=== PATIENT | male | born 1955 | race Two or more races ===

== ENCOUNTER 2020-04-23 01:55 | Inpatient (IN) | payer MEDICAID ==
[~2020-04-23] VITALS: Ht 172.7 cm; Wt 62.7 kg
[2020-04-23] VITALS (8 sets, daily range): BP systolic 125–152; BP diastolic 54–80
--- NOTE | 2020-04-23 02:03 | Emergency Room Report ---
History of Present Illness General Chief Complaint: Fever Source: Medical Record, EMS Present Illness HPI This is a 65-year-old [facility] from [facility]. He is bedbound secondary to CVA. Also history of diabetes and high blood pressure. He presents with chief plaint of cough and fever. Onset for 1 day. He had negative cover testing about 10 days ago. Coughing is nonproductive nature. No nausea or vomiting. No diarrhea. Unable to get any history from this patient because of his condition. History is through EMS and [facility] note. 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 COVID-19 Screening: Negative COVID-19 COVID-19 Testing Source: on 04/13 Patient History Past Medical History: see triage record, old chart reviewed, HTN, CVA/TIA Past Surgical History: other Pertinent Family History: none Social History: Denies: smoking Immunizations: other Reviewed Nursing Documentation: PMH: Agreed; PSxH: Agreed Review of Systems Constitutional: Reports: fever Eye: Denies: eye pain, blurred vision ENT: Denies: ear pain, nose congestion, throat swelling Respiratory: Reports: cough; Denies: shortness of breath Cardiovascular: Denies: chest pain, palpitations Gastrointestinal: Denies: abdominal pain, diarrhea, nausea, vomiting Musculoskeletal: Denies: back pain, joint pain Skin: Denies: rash Neurological: Denies: headache, numbness Endocrine: Denies: increased thirst, increased urine Hematologic/Lymphatic: Denies: easy bruising All Other Systems: negative except mentioned in HPI Physical Exam Vital Signs Date Time Temp Pulse Resp B/P (MAP) Pulse Ox O2 Delivery O2 Flow Rate FiO2 04/23/20 01:57 98.4 90 19 99 Room Air Vitals unremarkable Sp02 EP Interpretation: reviewed, normal General Appearance: alert, Chronically Ill Head: normocephalic, atraumatic Eyes: bilateral eye PERRL, bilateral eye EOMI ENT: hearing grossly normal, normal pharynx Neck: full range of motion, supple, no meningismus Respiratory: chest non-tender, lungs clear, normal breath sounds Cardiovascular #1: regular rate, rhythm, no murmur Gastrointestinal: normal bowel sounds, non tender, no mass, no organomegaly, no bruit, non-distended Musculoskeletal: back normal Neurologic: other - Hemiplegia Psychiatric: mood/affect normal Medical Decision Making Diagnostic Impression: Primary Impression: Sepsis Qualified Codes: A41.9 - Sepsis, unspecified organism; R65.20 - Severe sepsis without septic shock; N17.9 - Acute kidney failure, unspecified Additional Impressions: UTI (urinary tract infection) Qualified Codes: N30.00 - Acute cystitis without hematuria ARF (acute renal failure) Qualified Codes: N17.9 - Acute kidney failure, unspecified Acute metabolic encephalopathy ER Course Patient presents with fever and cough. Oxygenation is normal here. Vitals are stable. He did have a fever which got better with Tylenol. Source appear to be urine. First call with test negative. Chest x-ray negative for infection. Patient be admitted to Dr. Ritchie for IVF and IV abx. EKG Diagnostic Results Rate: normal Rhythm: NSR ST Segments: no acute changes Rhythm Strip Diag. Results EP Interpretation: yes Rate: 95 Rhythm: NSR, no PVC's, no ectopy Chest X-Ray Diagnostic Results Chest X-Ray Diagnostic Results : Chest X-Ray Ordered: Yes # of Views/Limited/Complete: 1 View Indication: Shortness of Breath EP Interpretation: Yes Interpretation: no consolidation, no effusion, no pneumothorax, other - Elevated right hemidiaphragm. Atelectasis. Impression: Other - atelectasis Electronically Signed by: Abel Driscoll MD Last Vital Signs Date Time Temp Pulse Resp B/P (MAP) Pulse Ox O2 Delivery O2 Flow Rate FiO2 04/23/20 01:57 98.4 90 19 99 Room Air Status: improved Disposition: ADMITTED INPATIENT Condition: Serious Abel Driscoll MD Apr 23, 2020 02:03
[2020-04-23] MEDS ORDERED: DEPAKOTE ER500 MG ORAL (02:10)
[2020-04-23] MEDS ORDERED: ATORVASTATIN CA40 MG ORAL (02:10)
[2020-04-23] MEDS ORDERED: FAMOTIDINE20 MG ORAL (02:10)
[2020-04-23] MEDS ORDERED: NORVASC5 MG ORAL (02:10)
[2020-04-23] MEDS ORDERED: TYLENOL EXTRA500 MG ORAL (02:10)
[2020-04-23] MEDS ORDERED: SENNOSIDES-DOC1 EACH ORAL (02:10)
[2020-04-23] MEDS ORDERED: LEXAPRO10 MG ORAL (02:10)
[2020-04-23] MEDS ORDERED: LANTUS SOL100 UNIT/1 SUBQ (02:10)
[2020-04-23] MEDS ORDERED: IPRATROPIU0.2 MG/1 M HHN (02:10)
[2020-04-23] MEDS ORDERED: INSULIN LI100 UNIT/1 SQ (02:10)
[2020-04-23] MEDS ORDERED: LISINOPRIL20 MG ORAL (02:10)
[2020-04-23] MEDS ORDERED: PLAVIX75 MG ORAL (02:10)
[2020-04-23] MEDS ORDERED: LOPRESSOR HCT1 EAC3 ORAL (02:10)
[2020-04-23] MEDS ORDERED: QUETIAPINE FUM100 MG ORAL (02:10)
--- NOTE | 2020-04-23 02:20 | NUR ---
Nurse Note: Pt brought in by ambulance from [facility] c/o fever of >100F. Per EMS, pt was given PRN tylenol for fever but not effective. EMS report a negative covid test result on 04/13. N: Per EMS, pt has been showing more LOC; unk baseline. Pupils equal and reactive to light. 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 Pt mute; expresses thoughts with body language. IV established on LT AC, patent and infusing NS. On arrival, rectal temp 100.2F. C: HR 89 on arrival. EKG revealed SN. R: Pt RA, satting at 95% O2. GI: Normal GI : Pt incontent. 16Fr epperson cath inserted; urine output noted and collected. S: On inspection, skin intact. Covid swab sent; MRSA, CRE, VRE swab sent. All safety measures met; will continue to monitor. All safety measures met; will continue to monitor.
--- NOTE | 2020-04-23 02:35 | Diagnostic Imaging Report ---
EXAM: XR Chest, 1 View CLINICAL HISTORY: SOB TECHNIQUE: Frontal view of the chest. COMPARISON: No relevant prior studies available. FINDINGS/IMPRESSION: Elevation of the right hemidiaphragm. Right base subsegmental atelectasis. No pleural effusion or pneumothorax. The heart size is prominent. Degenerative change of the spine and right shoulder.
[2020-04-23 03:00] LABS: HEMATOCRIT 43.5 % (42.0-52.0); HEMOGLOBIN 13.7 G/DL (14.2-18.0); MEAN CORPUSCULAR VOLUME 93 FL (80-99); PLATELET COUNT 276 K/UL (150-450); RED CELL DISTRIBUTION WIDTH 13.5 % (11.6-14.8)
[2020-04-23 03:05] LABS: APPEARANCE,URINE CLOUDY; BILIRUBIN, URINE NEGATIVE (NEGATIVE); GLUCOSE, URINE (UA) 4+ (NEGATIVE); KETONES,URINE 1+ (NEGATIVE); LEUKOCYTE ESTERASE ,URINE 1+ (NEGATIVE); NITRITE,URINE NEGATIVE (NEGATIVE); PH,URINE 5 (4.5-8.0); PROTEIN,URINE 4+ (NEGATIVE); UROBILINOGEN,URINE NORMAL MG/DL (0.0-1.0)
[2020-04-23 03:15] LABS: COLOR,URINE YELLOW
[2020-04-23 03:32] LABS: WHITE BLOOD COUNT 25.8 K/UL (4.8-10.8)
[2020-04-23] MEDS ORDERED: Acetaminophen 650 MG SUPP RECTAL ONE (03:45)
[2020-04-23 03:57] LABS: ALANINE AMINOTRANSFERASE 22 U/L (12-78); ALBUMIN 2.9 G/DL (3.4-5.0); ALBUMIN/GLOBULIN RATIO 0.5 (1.0-2.7); ALKALINE PHOSPHATASE 103 U/L (46-116); ANION GAP 10 mmol/L (5-15); ASPARTATE AMINO TRANSFERASE 25 U/L (15-37); BILIRUBIN,TOTAL 0.7 MG/DL (0.2-1.0); BLOOD UREA NITROGEN 30 mg/dL (7-18); CALCIUM 8.6 MG/DL (8.5-10.1); CARBON DIOXIDE 29 MMOL/L (21-32); CHLORIDE 98 MMOL/L (98-107); CKMB 1.2 NG/ML (0.0-3.6); CREATINE KINASE 125 U/L (26-308); CREATININE 2.3 MG/DL (0.55-1.30); POTASSIUM 3.7 MMOL/L (3.5-5.1); SODIUM 136 MMOL/L (136-145)
[2020-04-23] MEDS ORDERED: Acetaminophen 500mg (ES) tab ORAL ONE (04:00)
[2020-04-23] MEDS ORDERED: cefTRIAXone 1 GM in NS 55 ML IVPB ONE (04:00)
--- NOTE | 2020-04-23 04:15 | NUR ---
Nurse Note: All orders completed per ERMD orders. aware of 100.5 F rectal temp; tylenol ordered and administered. VSS. LT AC IV patent; infusing fluids and antibiotics. Newell cath patent and draining. No belongings noted. All safety measures met; will continue to monitor.
--- NOTE | 2020-04-23 05:25 | NUR ---
Nurse Note: One episode of yellow emesis; aware and kat ordered. Pt remains at baseline. All safety measures metl; will continue to monitor.
--- NOTE | 2020-04-23 05:42 | NUR ---
Nurse Note: Report given to NEERAJ Triana for continutiy of care. All remains at baseline condition.
[2020-04-23] MEDS ORDERED: Morphine Sulfate 2mg/ml Inj(IV/IM USE ONLY) IVP PRN (06:00)
--- NOTE | 2020-04-23 06:05 | NUR ---
NURSE NOTES: Report received from Mervat PICKARD. Patient arrived on unit via stretcher. Patient safely transferred to bed 401-2. Patient is noted to be on room air. Does not appear to be in respiratory distress. Patient is awake and alert x 2. Patient has a history of a stroke, but patient is able to respond to name, answer simple yes or no questions, patient is able to follow simple commands, and make basic needs known with pointing and gestures. Patient is noted to have 16 andorran epperson inserted in emergency department. currently patent and draining clear yellow urine. Patient noted to have 18 jayla IV in left ac, patent and flushes. Patient is noted not to have any skin issues. skin is clean, dry, and in tact. Do note that patient has old scar on sacrum. Patient's vital signs were as followed upon arrival: BP: 143/66 Heart Rate: 115 BPM Respirations: 18 respirations a minute Oxygen saturation: 96 % room air Temperature: 102.5 Kong PICKARD paged Doctor Russ regarding fever of 102.5. Orders for PRN Tylenol given. Patient recognized as a high fall risk. Placed in yellow gown, yellow socks, room near nurses station. Bed alarm on. Bed locked and in lowest position. Will endorse rest of admission to day shift. Patient is currently in stable condition.
--- NOTE | 2020-04-23 07:09 | NUR ---
NURSE NOTES: Received report from NEERAJ Triana. Pt received lying in hospital bed, AAO x 2, Korean and Telugu speaking, on RA, with no s/s of respiratory distress nor pain at this time. Pt's swallowing is in question d/t coughing when given water for swallowing medications. Incontinent x 2, has epperson [address], LBM unknown. Pt's skin intact, pIV on L AC at 18 g running NS at 100 ml/hr. Negative COVID-19 test from admission this AM. Will verify with diet at SNF. Will continue POC.
--- NOTE | 2020-04-23 07:33 | NUR ---
HAND-OFF: Report given to Sunny PICKARD. Endorsed admission. Endorsed that patient began coughing after given water to take two whole pills this morning. Endorsed that patient is a high fall risk. Patient is currently in stable condition.
--- NOTE | 2020-04-23 07:50 | NUR ---
NURSE NOTES: Called [facility] and confirmed that patient's diet order there is pureed with thickened liquids. Relayed information to Dr. Ritchie and received order to modify dietary texture as such. Notified Dietary department regarding updated orders.
[2020-04-23] MEDS: NovoLOG Insulin Flexpen SUBQ SCH ×4 (08:00→20:19)
[2020-04-23] MEDS ORDERED: Docusate 100mg cap ORAL SCH (09:00)
[2020-04-23] MEDS: Heparin 5000 units/ml inj SUBQ SCH ×2 (09:51→20:19)
--- NOTE | 2020-04-23 12:26 | Infectious Diseases Prog Note ---
Assessment/Plan Assessment/Plan Full consult to follow: A) 1) sepsis, fevers, leukocytosis, ? source 2) pmh noted 3) allergies - nkda P) 1) zosyn and zyvox, po vancomycin 2) check cultures, labs and chest x-ray, c.diff. 3) thank you Subjective Allergies: Coded Allergies: No Known Allergies (Unverified , 04/23/20) Objective Last 24 Hour Vital Signs Date Time Temp Pulse Resp B/P (MAP) Pulse Ox O2 Delivery O2 Flow Rate FiO2 04/23/20 09:00 Room Air 04/23/20 08:00 98.2 103 19 136/62 (86) 95 04/23/20 07:30 98.2 04/23/20 06:57 Room Air 04/23/20 06:05 102.5 115 18 143/66 (91) 96 04/23/20 05:50 100.5 110 19 147/80 100 Room Air 04/23/20 05:42 110 19 147/80 100 Room Air 04/23/20 05:26 100.5 04/23/20 04:14 100.5 100 19 130/80 100 Room Air 04/23/20 02:23 90 19 Room Air 04/23/20 02:23 100.2 89 19 135/56 99 Room Air 04/23/20 01:57 98.4 90 19 99 Room Air Height (Feet): 5 Height (Inches): 8.00 Weight (Pounds): 140 Microbiology Date/Time Source Procedure Growth Status 04/23/20 02:15 Nasopharynx SARS-CoV-2 RdRp Gene Assay - Final Complete Laboratory Tests Test 04/23/20 02:00 White Blood Count 25.8 K/UL (4.8-10.8) *H Red Blood Count 4.70 M/UL (4.70-6.10) Hemoglobin 13.7 G/DL (14.2-18.0) L Hematocrit 43.5 % (42.0-52.0) Mean Corpuscular Volume 93 FL (80-99) Mean Corpuscular Hemoglobin 29.1 PG (27.0-31.0) Mean Corpuscular Hemoglobin Concent 31.4 G/DL (32.0-36.0) L Red Cell Distribution Width 13.5 % (11.6-14.8) Platelet Count 276 K/UL (150-450) Mean Platelet Volume 7.0 FL (6.5-10.1) Neutrophils (%) (Auto) % (45.0-75.0) Lymphocytes (%) (Auto) % (20.0-45.0) Monocytes (%) (Auto) % (1.0-10.0) Eosinophils (%) (Auto) % (0.0-3.0) Basophils (%) (Auto) % (0.0-2.0) Differential Total Cells Counted 100 Neutrophils % (Manual) 87 % (45-75) H Lymphocytes % (Manual) 4 % (20-45) L Monocytes % (Manual) 7 % (1-10) Eosinophils % (Manual) 0 % (0-3) Basophils % (Manual) 0 % (0-2) Band Neutrophils 2 % (0-8) Platelet Estimate Adequate Platelet Morphology Normal Red Blood Cell Morphology Normal Urine Color Yellow Urine Appearance Cloudy Urine pH 5 (4.5-8.0) Urine Specific [place] 1.015 (1.005-1.035) Urine Protein 4+ (NEGATIVE) H Urine Glucose (UA) 4+ (NEGATIVE) H Urine Ketones 1+ (NEGATIVE) H Urine Blood 3+ (NEGATIVE) H Urine Nitrite Negative (NEGATIVE) Urine Bilirubin Negative (NEGATIVE) Urine Urobilinogen Normal MG/DL (0.0-1.0) Urine Leukocyte Esterase 1+ (NEGATIVE) H Urine RBC 5-10 /HPF (0 - 0) H Urine WBC 2-4 /HPF (0 - 0) Urine Squamous Epithelial Cells Few /LPF (NONE/OCC) Urine Amorphous Sediment Moderate /LPF (NONE) H Urine Bacteria Few /HPF (NONE) Urine Hyaline Casts 0-2 /LPF (NONE) H Urine Coarse Granular Casts 5-10 /LPF (NONE) H Sodium Level 136 MMOL/L (136-145) Potassium Level 3.7 MMOL/L (3.5-5.1) Chloride Level 98 MMOL/L (98-107) Carbon Dioxide Level 29 MMOL/L (21-32) Anion Gap 10 mmol/L (5-15) Blood Urea Nitrogen 30 mg/dL (7-18) H Creatinine 2.3 MG/DL (0.55-1.30) H Estimat Glomerular Filtration Rate 28.7 mL/min (>60) Glucose Level 259 MG/DL (74-106) H Hemoglobin A1c 8.5 % (4.3-6.0) H Lactic Acid Level 1.30 mmol/L (0.4-2.0) Calcium Level 8.6 MG/DL (8.5-10.1) Total Bilirubin 0.7 MG/DL (0.2-1.0) Aspartate Amino Transf (AST/SGOT) 25 U/L (15-37) Alanine Aminotransferase (ALT/SGPT) 22 U/L (12-78) Alkaline Phosphatase 103 U/L (46-116) Total Creatine Kinase 125 U/L (26-308) Creatine Kinase MB 1.2 NG/ML (0.0-3.6) Creatine Kinase MB Relative Index 0.9 Troponin I 0.000 ng/mL (0.000-0.056) Total Protein 8.3 G/DL (6.4-8.2) H Albumin 2.9 G/DL (3.4-5.0) L Globulin 5.4 g/dL Albumin/Globulin Ratio 0.5 (1.0-2.7) L Current Medications Medications (Trade) Dose Ordered Sig/Raghu Route PRN Reason Start Time Stop Time Status Last Admin Dose Admin Acetaminophen (Tylenol) 650 mg Q4H PRN ORAL Temp >100.5 04/23/20 06:50 05/23/20 06:49 04/23/20 07:00 Dextrose (Dextrose 50%) 25 ml Q30M PRN IV Hypoglycemia 04/23/20 06:00 07/22/20 05:59 Dextrose (Dextrose 50%) 50 ml Q30M PRN IV Hypoglycemia 04/23/20 06:00 07/22/20 05:59 Diphenhydramine HCl (Benadryl) 25 mg Q6H PRN ORAL Itching/Pruritis 04/23/20 06:00 05/23/20 05:59 Docusate Sodium (Colace) 100 mg EVERY 12 HOURS ORAL 04/23/20 09:00 05/23/20 08:59 Famotidine (Pepcid) 20 mg BID ORAL 04/23/20 09:00 07/22/20 08:59 04/23/20 09:50 Heparin Sodium (Porcine) (Heparin 5000 units/ml) 5,000 units EVERY 12 HOURS SUBQ 04/23/20 09:00 06/07/20 08:59 04/23/20 09:51 Insulin Aspart (NovoLOG) BEFORE MEALS AND HS SUBQ 04/23/20 08:00 07/22/20 07:59 Insulin Detemir (Levemir) 10 units BEDTIME SUBQ 04/23/20 21:00 07/22/20 20:59 Morphine Sulfate (Morphine Sulfate) 1 mg Q3H PRN IVP For Pain 04/23/20 06:00 04/30/20 05:59 Ondansetron HCl (Zofran) 4 mg Q6H PRN IVP Nausea & Vomiting 04/23/20 06:00 05/23/20 05:59 Piperacillin Sod/ Tazobactam Sod 3.375 gm/Sodium Chloride 110 ml @ 27.5 mls/hr EVERY 8 HOURS IVPB 04/23/20 14:00 04/28/20 13:59 Sodium Chloride 1,000 ml @ 100 mls/hr Q10H IV 04/23/20 06:15 05/23/20 06:14 04/23/20 06:54 Temazepam (Restoril) 15 mg HSPRN PRN ORAL Insomnia 04/23/20 06:00 04/30/20 05:59 Malina Thompson MD Apr 23, 2020 12:26
--- NOTE | 2020-04-23 12:59 | Consultation ---
History of Present Illness General Chief Complaint: Fever Present Illness HPI [facility] a 65[facility] He is bedbound secondary to CVA. Also history of diabetes and high blood pressure. He presents with chief plaint of cough and fever. Onset for 1 day. He had negative covid testing about 10 days ago. Coughing is nonproductive nature. No nausea or vomiting. No diarrhea. Unable to get any history from this patient because of his condition. History is through EMS and shelter note. Allergies: Coded Allergies: No Known Allergies (Unverified , 04/23/20) Medication History Scheduled Amlodipine Besylate (Norvasc), 5 MG ORAL DAILY, (Reported) Atorvastatin Calcium* (Atorvastatin Calcium*), 40 MG ORAL BEDTIME, (Reported) Clopidogrel Bisulfate* (Plavix*), 75 MG ORAL DAILY, (Reported) Divalproex Sodium* (Depakote Er*), 750 MG ORAL EVERY 12 HOURS, (Reported) Escitalopram Oxalate* (Lexapro*), 15 MG ORAL DAILY, (Reported) Famotidine* (Pepcid 20mg tablet*), 20 MG ORAL DAILY, (Reported) Insulin Glargine (Lantus), 0 SUBQ BEDTIME, (Reported) Lisinopril (Lisinopril*), 20 MG ORAL DAILY, (Reported) Metoprolol/Hydrochlorothiazide (Lopressor Hct 50-25 Tablet), 1 TAB ORAL DAILY, ( Reported) Quetiapine Fumarate* (Seroquel*), 75 MG ORAL DAILY, (Reported) Sennosides-Docusate Sodium* (Sennosides-Docusate Sodium*), 1 TAB ORAL DAILY, ( Reported) Scheduled PRN Acetaminophen* (Tylenol Extra Strength*), 325 MG ORAL Q6H PRN for Mild Pain/ Temp > 100.5, (Reported) Ipratropium [place] 0.5MG/2.5ML (Ipratropium [place] 0.5MG/2.5ML), 0.5 MG HHN Q6H PRN for Shortness of Breath, (Reported) Miscellaneous Medications Insulin Lispro (Insulin Lispro), 100 UNIT SQ, (Reported) Patient History Healthcare decision maker Resuscitation status Advanced Directive on File Review of Systems All Other Systems: negative except mentioned in HPI Physical Exam Last 24 Hour Vital Signs Date Time Temp Pulse Resp B/P (MAP) Pulse Ox O2 Delivery O2 Flow Rate FiO2 04/23/20 12:00 98.4 71 18 132/54 (80) 100 04/23/20 09:00 Room Air 04/23/20 08:00 98.2 103 19 136/62 (86) 95 04/23/20 07:30 98.2 04/23/20 06:57 Room Air 04/23/20 06:05 102.5 115 18 143/66 (91) 96 04/23/20 05:50 100.5 110 19 147/80 100 Room Air 04/23/20 05:42 110 19 147/80 100 Room Air 04/23/20 05:26 100.5 04/23/20 04:14 100.5 100 19 130/80 100 Room Air 04/23/20 02:23 90 19 Room Air 04/23/20 02:23 100.2 89 19 135/56 99 Room Air 04/23/20 01:57 98.4 90 19 99 Room Air Intake and Output 04/22/20 04/23/20 19:00 07:00 Intake Total 4255 ml Output Total 500 ml Balance 3755 ml Intake IV Total 4255 ml Output Urine Total 500 ml # Bowel Movements 1 Laboratory Tests Test 04/23/20 02:00 White Blood Count 25.8 K/UL (4.8-10.8) *H Red Blood Count 4.70 M/UL (4.70-6.10) Hemoglobin 13.7 G/DL (14.2-18.0) L Hematocrit 43.5 % (42.0-52.0) Mean Corpuscular Volume 93 FL (80-99) Mean Corpuscular Hemoglobin 29.1 PG (27.0-31.0) Mean Corpuscular Hemoglobin Concent 31.4 G/DL (32.0-36.0) L Red Cell Distribution Width 13.5 % (11.6-14.8) Platelet Count 276 K/UL (150-450) Mean Platelet Volume 7.0 FL (6.5-10.1) Neutrophils (%) (Auto) % (45.0-75.0) Lymphocytes (%) (Auto) % (20.0-45.0) Monocytes (%) (Auto) % (1.0-10.0) Eosinophils (%) (Auto) % (0.0-3.0) Basophils (%) (Auto) % (0.0-2.0) Differential Total Cells Counted 100 Neutrophils % (Manual) 87 % (45-75) H Lymphocytes % (Manual) 4 % (20-45) L Monocytes % (Manual) 7 % (1-10) Eosinophils % (Manual) 0 % (0-3) Basophils % (Manual) 0 % (0-2) Band Neutrophils 2 % (0-8) Platelet Estimate Adequate Platelet Morphology Normal Red Blood Cell Morphology Normal Urine Color Yellow Urine Appearance Cloudy Urine pH 5 (4.5-8.0) Urine Specific [place] 1.015 (1.005-1.035) Urine Protein 4+ (NEGATIVE) H Urine Glucose (UA) 4+ (NEGATIVE) H Urine Ketones 1+ (NEGATIVE) H Urine Blood 3+ (NEGATIVE) H Urine Nitrite Negative (NEGATIVE) Urine Bilirubin Negative (NEGATIVE) Urine Urobilinogen Normal MG/DL (0.0-1.0) Urine Leukocyte Esterase 1+ (NEGATIVE) H Urine RBC 5-10 /HPF (0 - 0) H Urine WBC 2-4 /HPF (0 - 0) Urine Squamous Epithelial Cells Few /LPF (NONE/OCC) Urine Amorphous Sediment Moderate /LPF (NONE) H Urine Bacteria Few /HPF (NONE) Urine Hyaline Casts 0-2 /LPF (NONE) H Urine Coarse Granular Casts 5-10 /LPF (NONE) H Sodium Level 136 MMOL/L (136-145) Potassium Level 3.7 MMOL/L (3.5-5.1) Chloride Level 98 MMOL/L (98-107) Carbon Dioxide Level 29 MMOL/L (21-32) Anion Gap 10 mmol/L (5-15) Blood Urea Nitrogen 30 mg/dL (7-18) H Creatinine 2.3 MG/DL (0.55-1.30) H Estimat Glomerular Filtration Rate 28.7 mL/min (>60) Glucose Level 259 MG/DL (74-106) H Hemoglobin A1c 8.5 % (4.3-6.0) H Lactic Acid Level 1.30 mmol/L (0.4-2.0) Calcium Level 8.6 MG/DL (8.5-10.1) Total Bilirubin 0.7 MG/DL (0.2-1.0) Aspartate Amino Transf (AST/SGOT) 25 U/L (15-37) Alanine Aminotransferase (ALT/SGPT) 22 U/L (12-78) Alkaline Phosphatase 103 U/L (46-116) Total Creatine Kinase 125 U/L (26-308) Creatine Kinase MB 1.2 NG/ML (0.0-3.6) Creatine Kinase MB Relative Index 0.9 Troponin I 0.000 ng/mL (0.000-0.056) Total Protein 8.3 G/DL (6.4-8.2) H Albumin 2.9 G/DL (3.4-5.0) L Globulin 5.4 g/dL Albumin/Globulin Ratio 0.5 (1.0-2.7) L Microbiology Date/Time Source Procedure Growth Status 04/23/20 02:15 Nasopharynx SARS-CoV-2 RdRp Gene Assay - Final Complete Height (Feet): 5 Height (Inches): 8.00 Weight (Pounds): 140 Medications Current Medications Medications (Trade) Dose Ordered Sig/Raghu Route PRN Reason Start Time Stop Time Status Last Admin Dose Admin Acetaminophen (Tylenol) 650 mg Q4H PRN ORAL Temp >100.5 04/23/20 06:50 05/23/20 06:49 04/23/20 07:00 Dextrose (Dextrose 50%) 25 ml Q30M PRN IV Hypoglycemia 04/23/20 06:00 07/22/20 05:59 Dextrose (Dextrose 50%) 50 ml Q30M PRN IV Hypoglycemia 04/23/20 06:00 07/22/20 05:59 Diphenhydramine HCl (Benadryl) 25 mg Q6H PRN ORAL Itching/Pruritis 04/23/20 06:00 05/23/20 05:59 Docusate Sodium (Colace) 100 mg EVERY 12 HOURS ORAL 04/23/20 09:00 05/23/20 08:59 Famotidine (Pepcid) 20 mg BID ORAL 04/23/20 09:00 07/22/20 08:59 04/23/20 09:50 Heparin Sodium (Porcine) (Heparin 5000 units/ml) 5,000 units EVERY 12 HOURS SUBQ 04/23/20 09:00 06/07/20 08:59 04/23/20 09:51 Insulin Aspart (NovoLOG) BEFORE MEALS AND HS SUBQ 04/23/20 08:00 07/22/20 07:59 04/23/20 12:28 Insulin Detemir (Levemir) 10 units BEDTIME SUBQ 04/23/20 21:00 07/22/20 20:59 Linezolid 300 ml @ 300 mls/hr EVERY 12 HOURS IVPB 04/23/20 21:00 04/30/20 20:59 Morphine Sulfate (Morphine Sulfate) 1 mg Q3H PRN IVP For Pain 04/23/20 06:00 04/30/20 05:59 Ondansetron HCl (Zofran) 4 mg Q6H PRN IVP Nausea & Vomiting 04/23/20 06:00 05/23/20 05:59 Piperacillin Sod/ Tazobactam Sod 3.375 gm/Sodium Chloride 110 ml @ 27.5 mls/hr EVERY 8 HOURS IVPB 04/23/20 14:00 04/28/20 13:59 Sodium Chloride 1,000 ml @ 100 mls/hr Q10H IV 04/23/20 06:15 05/23/20 06:14 04/23/20 06:54 Temazepam (Restoril) 15 mg HSPRN PRN ORAL Insomnia 04/23/20 06:00 04/30/20 05:59 Vancomycin HCl (Firvanq) 125 mg FOUR TIMES A DAY ORAL 04/23/20 13:30 04/30/20 13:29 Objective Narrative GENERAL: No acute distress, appears comfortable, alert HEENT: NCAT, non-icteric eyes, pupils PERRLA Neck: No cervical lymphadenopathy, trachea midline CV: Regular rate and rhythm, no murmurs rubs or gallops RESP: Clear to auscultation bilaterally, no wheezes/rhonchi/crackles : Erythema surrounding penis at the meatus, with very small blister ABD: soft, non-distended, no TTP EXT: Normal muscle tone, +5/5 muscle strength NEURO: Is aphasic and bedbound from prior stroke, normal muscle tone Assessment/Plan Diagnosis [place] I: #CONRAD on CKD #Sepsis due to UTI vs c diff #leukocytosis #HTN #DM #HLD #h/o CVA #bedbound - admit inpatient - IVF - renal US - defer further work up pending evolution of renal function - antibiotics per ID - amlodpine 5mg daily - metop 50mg BID - avoid nephrotoxins - strict I&Os - stools studies - daily weights A total of 70 minutes was spent on this case with more than 50% including care coordination and counseling. Rosalba Ritchie M.D. Apr 23, 2020 12:59
[2020-04-23] MEDS: Piperacillin/Tazobactam 3.375 GM in NS 110 ML IVPB SCH ×2 (14:21→21:12)
[2020-04-23] MEDS: Vancomycin oral 125mg/2.5ml ORAL SCH ×3 (14:21→20:18)
[2020-04-23 14:38] LABS: ANION GAP 10 mmol/L (5-15); BLOOD UREA NITROGEN 31 mg/dL (7-18); CALCIUM 7.8 MG/DL (8.5-10.1); CARBON DIOXIDE 24 MMOL/L (21-32); CHLORIDE 103 MMOL/L (98-107); CREATININE 1.8 MG/DL (0.55-1.30); POTASSIUM 3.8 MMOL/L (3.5-5.1); SODIUM 137 MMOL/L (136-145)
--- NOTE | 2020-04-23 15:20 | NUR ---
CASE MANAGEMENT:REVIEW 65 YR OLD MALE BIBA FROM [facility] CC: FEVER SI: SEPSIS. UTI. 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
[2020-04-23] MEDS ORDERED: Milk of Magnesia 30ml Ud ORAL PRN (15:45)
[2020-04-23] MEDS ORDERED: Ipratropium 0.02% Inh Soln 2.5ml UD HHN PRN (15:45)
[2020-04-23] MEDS ORDERED: LORazepam 1mg tab ORAL PRN (15:45)
--- NOTE | 2020-04-23 18:18 | History and Physical ---
History of Present Illness General Date patient seen: Apr 23, 2020 Time patient seen: 13:00 Reason for Hospitalization: Fever Present Illness HPI Difficult to obtain history from patient as he is a phasic from prior stroke. Most history obtained from chart review. This is a 65-year-old male from care home. He is bedbound secondary to CVA. Also history of diabetes and high blood pressure. He presents with chief plaint of cough and fever. Onset for 1 day. He had negative covid testing about 10 days ago. Coughing is nonproductive nature. No nausea or vomiting. No diarrhea. Unable to get any history from this patient because of his condition. History is through EMS and care home note. Patient was admitted for sepsis secondary to UTI and given Rocephin in the ED. Patient was also given IV fluids and has CONRAD. When I asked patient if he has had kidney problems in the past he said yes, however I suspect patient is a poor historian. Patient continued to be febrile with fever of 102.5 that came down with Tylenol. Patient is coming from convalescent home Unable to obtain family history, social history Allergies: Coded Allergies: No Known Allergies (Unverified , 04/23/20) COVID-19 Screening Contact w/high risk pt: Yes Recent Travel to affected area: No Experienced COVID-19 symptoms?: No COVID-19 symptoms experienced: Fever (T>100.4F or >38C) Medication History Scheduled Amlodipine Besylate (Norvasc), 5 MG ORAL DAILY, (Reported) Atorvastatin Calcium* (Atorvastatin Calcium*), 40 MG ORAL BEDTIME, (Reported) Clopidogrel Bisulfate* (Plavix*), 75 MG ORAL DAILY, (Reported) Divalproex Sodium* (Depakote Er*), 750 MG ORAL EVERY 12 HOURS, (Reported) Escitalopram Oxalate* (Lexapro*), 15 MG ORAL DAILY, (Reported) Famotidine* (Pepcid 20mg tablet*), 20 MG ORAL DAILY, (Reported) Insulin Glargine (Lantus), 0 SUBQ BEDTIME, (Reported) Lisinopril (Lisinopril*), 20 MG ORAL DAILY, (Reported) Metoprolol/Hydrochlorothiazide (Lopressor Hct 50-25 Tablet), 1 TAB ORAL DAILY, ( Reported) Quetiapine Fumarate* (Seroquel*), 75 MG ORAL DAILY, (Reported) Sennosides-Docusate Sodium* (Sennosides-Docusate Sodium*), 1 TAB ORAL DAILY, ( Reported) Scheduled PRN Acetaminophen* (Tylenol Extra Strength*), 325 MG ORAL Q6H PRN for Mild Pain/ Temp > 100.5, (Reported) Ipratropium [place] 0.5MG/2.5ML (Ipratropium [place] 0.5MG/2.5ML), 0.5 MG HHN Q6H PRN for Shortness of Breath, (Reported) Miscellaneous Medications Insulin Lispro (Insulin Lispro), 100 UNIT SQ, (Reported) Medications Narrative Noted above Patient History Limited by: other - A aphasia from stroke History Provided By: Medical Record Healthcare decision maker Resuscitation status Full code, by POLST, reviewed Advanced Directive on File Review of Systems ROS Narrative Unable to obtain clearly Physical Exam Last 24 Hour Vital Signs Date Time Temp Pulse Resp B/P (MAP) Pulse Ox O2 Delivery O2 Flow Rate FiO2 04/23/20 16:00 98.0 93 21 125/63 (83) 97 04/23/20 12:00 98.4 71 18 132/54 (80) 100 04/23/20 09:00 Room Air 04/23/20 08:00 98.2 103 19 136/62 (86) 95 04/23/20 07:30 98.2 04/23/20 06:57 Room Air 04/23/20 06:05 102.5 115 18 143/66 (91) 96 04/23/20 05:50 100.5 110 19 147/80 100 Room Air 04/23/20 05:42 110 19 147/80 100 Room Air 04/23/20 05:26 100.5 04/23/20 04:14 100.5 100 19 130/80 100 Room Air 04/23/20 02:23 90 19 Room Air 04/23/20 02:23 100.2 89 19 135/56 99 Room Air 04/23/20 01:57 98.4 90 19 99 Room Air Intake and Output 04/22/20 04/23/20 19:00 07:00 Intake Total 4255 ml Output Total 500 ml Balance 3755 ml Intake IV Total 4255 ml Output Urine Total 500 ml # Bowel Movements 1 Laboratory Tests Test 04/23/20 02:00 04/23/20 14:05 White Blood Count 25.8 K/UL (4.8-10.8) *H Red Blood Count 4.70 M/UL (4.70-6.10) Hemoglobin 13.7 G/DL (14.2-18.0) L Hematocrit 43.5 % (42.0-52.0) Mean Corpuscular Volume 93 FL (80-99) Mean Corpuscular Hemoglobin 29.1 PG (27.0-31.0) Mean Corpuscular Hemoglobin Concent 31.4 G/DL (32.0-36.0) L Red Cell Distribution Width 13.5 % (11.6-14.8) Platelet Count 276 K/UL (150-450) Mean Platelet Volume 7.0 FL (6.5-10.1) Neutrophils (%) (Auto) % (45.0-75.0) Lymphocytes (%) (Auto) % (20.0-45.0) Monocytes (%) (Auto) % (1.0-10.0) Eosinophils (%) (Auto) % (0.0-3.0) Basophils (%) (Auto) % (0.0-2.0) Differential Total Cells Counted 100 Neutrophils % (Manual) 87 % (45-75) H Lymphocytes % (Manual) 4 % (20-45) L Monocytes % (Manual) 7 % (1-10) Eosinophils % (Manual) 0 % (0-3) Basophils % (Manual) 0 % (0-2) Band Neutrophils 2 % (0-8) Platelet Estimate Adequate Platelet Morphology Normal Red Blood Cell Morphology Normal Urine Color Yellow Urine Appearance Cloudy Urine pH 5 (4.5-8.0) Urine Specific [place] 1.015 (1.005-1.035) Urine Protein 4+ (NEGATIVE) H Urine Glucose (UA) 4+ (NEGATIVE) H Urine Ketones 1+ (NEGATIVE) H Urine Blood 3+ (NEGATIVE) H Urine Nitrite Negative (NEGATIVE) Urine Bilirubin Negative (NEGATIVE) Urine Urobilinogen Normal MG/DL (0.0-1.0) Urine Leukocyte Esterase 1+ (NEGATIVE) H Urine RBC 5-10 /HPF (0 - 0) H Urine WBC 2-4 /HPF (0 - 0) Urine Squamous Epithelial Cells Few /LPF (NONE/OCC) Urine Amorphous Sediment Moderate /LPF (NONE) H Urine Bacteria Few /HPF (NONE) Urine Hyaline Casts 0-2 /LPF (NONE) H Urine Coarse Granular Casts 5-10 /LPF (NONE) H Sodium Level 136 MMOL/L (136-145) 137 MMOL/L (136-145) Potassium Level 3.7 MMOL/L (3.5-5.1) 3.8 MMOL/L (3.5-5.1) Chloride Level 98 MMOL/L (98-107) 103 MMOL/L (98-107) Carbon Dioxide Level 29 MMOL/L (21-32) 24 MMOL/L (21-32) Anion Gap 10 mmol/L (5-15) 10 mmol/L (5-15) Blood Urea Nitrogen 30 mg/dL (7-18) H 31 mg/dL (7-18) H Creatinine 2.3 MG/DL (0.55-1.30) H 1.8 MG/DL (0.55-1.30) H Estimat Glomerular Filtration Rate 28.7 mL/min (>60) 38.1 mL/min (>60) Glucose Level 259 MG/DL (74-106) H 235 MG/DL (74-106) H Hemoglobin A1c 8.5 % (4.3-6.0) H Lactic Acid Level 1.30 mmol/L (0.4-2.0) Calcium Level 8.6 MG/DL (8.5-10.1) 7.8 MG/DL (8.5-10.1) L Total Bilirubin 0.7 MG/DL (0.2-1.0) Aspartate Amino Transf (AST/SGOT) 25 U/L (15-37) Alanine Aminotransferase (ALT/SGPT) 22 U/L (12-78) Alkaline Phosphatase 103 U/L (46-116) Total Creatine Kinase 125 U/L (26-308) Creatine Kinase MB 1.2 NG/ML (0.0-3.6) Creatine Kinase MB Relative Index 0.9 Troponin I 0.000 ng/mL (0.000-0.056) Total Protein 8.3 G/DL (6.4-8.2) H Albumin 2.9 G/DL (3.4-5.0) L Globulin 5.4 g/dL Albumin/Globulin Ratio 0.5 (1.0-2.7) L Microbiology Date/Time Source Procedure Growth Status 04/23/20 02:15 Nasopharynx SARS-CoV-2 RdRp Gene Assay - Final Complete Height (Feet): 5 Height (Inches): 8.00 Weight (Pounds): 140 Medications Current Medications Medications (Trade) Dose Ordered Sig/Raghu Route PRN Reason Start Time Stop Time Status Last Admin Dose Admin Acetaminophen (Tylenol) 650 mg Q4H PRN ORAL Temp >100.5 04/23/20 06:50 05/23/20 06:49 04/23/20 07:00 Amlodipine Besylate (Norvasc) 5 mg DAILY ORAL 04/24/20 09:00 05/24/20 08:59 Atorvastatin Calcium (Lipitor) 40 mg BEDTIME ORAL 04/23/20 21:00 07/22/20 20:59 Dextrose (Dextrose 50%) 25 ml Q30M PRN IV Hypoglycemia 04/23/20 06:00 07/22/20 05:59 Dextrose (Dextrose 50%) 50 ml Q30M PRN IV Hypoglycemia 04/23/20 06:00 07/22/20 05:59 Diphenhydramine HCl (Benadryl) 25 mg Q6H PRN ORAL Itching/Pruritis 04/23/20 06:00 05/23/20 05:59 Divalproex Sodium (Depakote) 500 mg DAILY ORAL 04/24/20 09:00 05/24/20 08:59 Divalproex Sodium (Depakote) 750 mg BEDTIME ORAL 04/23/20 21:00 05/23/20 20:59 Escitalopram Oxalate (Lexapro) 15 mg DAILY ORAL 04/24/20 09:00 05/24/20 08:59 Famotidine (Pepcid) 20 mg BID ORAL 04/23/20 09:00 07/22/20 08:59 04/23/20 17:39 Folic Acid (Folate) 1 mg DAILY ORAL 04/24/20 09:00 05/24/20 08:59 Heparin Sodium (Porcine) (Heparin 5000 units/ml) 5,000 units EVERY 12 HOURS SUBQ 04/23/20 09:00 06/07/20 08:59 04/23/20 09:51 Insulin Aspart (NovoLOG) BEFORE MEALS AND HS SUBQ 04/23/20 08:00 07/22/20 07:59 04/23/20 17:11 Insulin Detemir (Levemir) 10 units BEDTIME SUBQ 04/23/20 21:00 07/22/20 20:59 Ipratropium [place] (Atrovent) 500 mcg Q4H PRN HHN Shortness of Breath 04/23/20 15:45 04/28/20 15:44 Linezolid 300 ml @ 300 mls/hr EVERY 12 HOURS IVPB 04/23/20 21:00 04/30/20 20:59 Lorazepam (Ativan) 1 mg THREE TIMES A DAY PRN ORAL Agitation 04/23/20 15:45 04/30/20 15:44 Magnesium Hydroxide (Mom) 30 ml DAILYPRN PRN ORAL Constipation 04/23/20 15:45 05/23/20 15:44 Metoprolol Tartrate (Lopressor) 50 mg Q12HR ORAL 04/23/20 21:00 07/22/20 20:59 Morphine Sulfate (Morphine Sulfate) 1 mg Q3H PRN IVP For Pain 04/23/20 06:00 04/30/20 05:59 Ondansetron HCl (Zofran) 4 mg Q6H PRN IVP Nausea & Vomiting 04/23/20 06:00 05/23/20 05:59 Piperacillin Sod/ Tazobactam Sod 3.375 gm/Sodium Chloride 110 ml @ 27.5 mls/hr EVERY 8 HOURS IVPB 04/23/20 14:00 04/28/20 13:59 04/23/20 14:21 Quetiapine Fumarate (SEROqueL) 75 mg BEDTIME ORAL 04/23/20 21:00 06/07/20 20:59 Sennosides (Senokot) 17.2 mg DAILY ORAL 04/24/20 09:00 05/24/20 08:59 Sodium Chloride 1,000 ml @ 100 mls/hr Q10H IV 04/23/20 06:15 05/23/20 06:14 04/23/20 17:12 Temazepam (Restoril) 15 mg HSPRN PRN ORAL Insomnia 04/23/20 06:00 04/30/20 05:59 Vancomycin HCl (Firvanq) 125 mg FOUR TIMES A DAY ORAL 04/23/20 13:30 04/30/20 13:29 04/23/20 17:39 Objective Narrative GENERAL: No acute distress, appears comfortable, alert HEENT: NCAT, non-icteric eyes, pupils PERRLA Neck: No cervical lymphadenopathy, trachea midline CV: Regular rate and rhythm, no murmurs rubs or gallops RESP: Clear to auscultation bilaterally, no wheezes/rhonchi/crackles : Erythema surrounding penis at the meatus, with very small blister ABD: soft, non-distended, no TTP EXT: Normal muscle tone, +5/5 muscle strength NEURO: Is aphasic and bedbound from prior stroke, normal muscle tone Assessment/Plan Problem List: (1) History of stroke ICD Codes: Z86.73 - Personal history of transient ischemic attack (TIA), and cerebral infarction without residual deficits SNOMED: 990436244 (2) CAD (coronary artery disease) ICD Codes: I25.10 - Atherosclerotic heart disease of [place] coronary artery without angina pectoris SNOMED: 63125169 (3) UTI (urinary tract infection) ICD Codes: N39.0 - Urinary tract infection, site not specified SNOMED: 42500320 Qualifiers: Qualified Codes: N30.00 - Acute cystitis without hematuria (4) Sepsis ICD Codes: A41.9 - Sepsis, unspecified organism SNOMED: 97149677 Qualifiers: Qualified Codes: A41.9 - Sepsis, unspecified organism; R65.20 - Severe sepsis without septic shock; N17.9 - Acute kidney failure, unspecified (5) Acute metabolic encephalopathy ICD Codes: G93.41 - Metabolic encephalopathy SNOMED: 82721128, 738711616 Assessment/Plan: Patient is a 65-year-old male with past medical history of bedbound and a phasic secondary to CVA, CAD?, Who presents from care home for sepsis. #Sepsis secondary to C. difficile versus UTI -Very high white count and renal failure suspicious for C. difficile, however patient had one loose BM this morning. Follow-up C. difficile -COVID negative -Lactate 1.3 -IV fluids -IV antibiotics per infectious disease -Follow-up blood cultures -Chest x-ray within normal limits -Monitor CBC and BMP -Infectious disease consult, appreciate recommendations -Follow-up penile complaints of pain/small blister/discussed with infectious disease #CONRAD versus CKD -IV fluid resuscitation -Monitor and manage electrolytes like -Creatinine is improving -Monitor urine output -Avoid nephrotoxic toxic medication -Nephrology consult, appreciate recommendations #Questionable CAD given medication list #History of CVA -Continue home medications -Medical optimization -PT OT #Full code -POLST reviewed #DVT P PX -Heparin #Dispo -Came from care home A total of 73 minutes was spent on this case with more than 50% including care coordination and counseling. Which includes discussion with specialists including infectious disease, nephrology, nurse at bedside. I spent an additional 37 minutes on reviewing patient's chart from admission. This includes review of imaging, labs, notes, and interpretation of results. Time of note may not reflect time of patient encounter Suki Cooper DO Apr 23, 2020 18:18
--- NOTE | 2020-04-23 19:08 | NUR ---
HAND-OFF: Report given to NEERAJ Triana. Endorsed POC.
--- NOTE | 2020-04-23 19:25 | NUR ---
NURSE NOTES: Report received form Sunny PICKARD. Patient is awake and alert x 2. Patient is [place] / [place] speaking. Endorsed that patient is able to make basic needs known. Patient is noted to be on room air. Does not appear to be in respiratory distress at this time. Endorsed that patient has been afebrile all day. Endorsed that patient needs a c-diff stool collection. Patient noted to have indwelling epperson draining dark yellow urine. Patient noted to have slight redness and irritation at insertion site of epperson, will continue to monitor. Patient is recognized as a high fall risk. him assistant made aware. Bed locked, alarmed, and in lowest position. call light in reach. Will continue to follow plan of care.
[2020-04-23] MEDS: Metoprolol Tartrate 50mg tab ORAL SCH (20:17)
[2020-04-23] MEDS: Atorvastatin 20mg tab ORAL SCH (20:18)
[2020-04-23] MEDS: Levemir Flexpen SUBQ SCH (20:20)
[2020-04-24] VITALS: BP 114/53
[2020-04-24 04:00] VITALS: BP 104/52
[2020-04-24] MEDS: Piperacillin/Tazobactam 3.375 GM in NS 110 ML IVPB SCH ×3 (05:33→22:12)
[2020-04-24] MEDS: NovoLOG Insulin Flexpen SUBQ SCH ×4 (05:33→20:30)
[2020-04-24 06:54] LABS: HEMATOCRIT 33.5 % (42.0-52.0); HEMOGLOBIN 10.6 G/DL (14.2-18.0); MEAN CORPUSCULAR VOLUME 93 FL (80-99); PLATELET COUNT 235 K/UL (150-450); RED BLOOD COUNT 3.62 M/UL (4.70-6.10); RED CELL DISTRIBUTION WIDTH 13.3 % (11.6-14.8); WHITE BLOOD COUNT 19.4 K/UL (4.8-10.8)
--- NOTE | 2020-04-24 07:08 | NUR ---
NURSE NOTES: Received report from NEERAJ Triana. Pt received lying in hospital bed sleeping with padded rails for seizure precaution, AAO x 2, nonambulatory d/t R sided weakness from hx of CVA with contractures of RUE but able to self-reposition in bed, Azerbaijani and Malay speaking, on RA, with no s/s of respiratory distress nor pain at this time. Pt is on diabetic diet with pureed moist and thickened liquids. Incontinent x 2, has epperson [address], LBM 04/23/20 x1. Pt's skin remains intact, pIV on L AC at 18 g running NS at 100 ml/hr. Still pending CDiff stool collection. Will continue POC.
--- NOTE | 2020-04-24 07:19 | NUR ---
HAND-OFF: Report given to Sunny PICKARD. Endorsed that patient had decreased agitation and anxiety over night after administration ativan. Endorsed that stool sample is still required. Patient currently asleep and in stable condition.
[2020-04-24 07:24] LABS: ALANINE AMINOTRANSFERASE 23 U/L (12-78); ALBUMIN 1.9 G/DL (3.4-5.0); ALBUMIN/GLOBULIN RATIO 0.5 (1.0-2.7); ALKALINE PHOSPHATASE 74 U/L (46-116); ANION GAP 9 mmol/L (5-15); ASPARTATE AMINO TRANSFERASE 32 U/L (15-37); BILIRUBIN,TOTAL 0.4 MG/DL (0.2-1.0); BLOOD UREA NITROGEN 26 mg/dL (7-18); CALCIUM 7.2 MG/DL (8.5-10.1); CARBON DIOXIDE 25 MMOL/L (21-32); CHLORIDE 106 MMOL/L (98-107); CREATININE 1.7 MG/DL (0.55-1.30); POTASSIUM 3.3 MMOL/L (3.5-5.1); SODIUM 140 MMOL/L (136-145)
[2020-04-24 07:38] LABS: PHOSPHORUS 2.1 MG/DL (2.5-4.9)
[2020-04-24 08:00] VITALS: BP 128/53
[2020-04-24] MEDS: Sennosides 8.6mg tab ORAL SCH (08:54)
[2020-04-24] MEDS: Depakote 500mg tab ORAL SCH (08:55)
[2020-04-24] MEDS: Metoprolol Tartrate 50mg tab ORAL SCH ×2 (08:55→20:26)
[2020-04-24] MEDS: Heparin 5000 units/ml inj SUBQ SCH ×2 (08:56→20:30)
[2020-04-24] MEDS: Vancomycin oral 125mg/2.5ml ORAL SCH ×4 (09:00→20:27)
--- NOTE | 2020-04-24 09:27 | Nephrology Progress Note ---
Assessment/Plan Plan #CONRAD on CKD #Sepsis due to UTI vs c diff #leukocytosis #HTN #DM #HLD #h/o CVA #bedbound - IVF - renal US - defer further work up pending evolution of renal function - antibiotics per ID - amlodpine 5mg daily - metop 50mg BID - avoid nephrotoxins - strict I&Os - stools studies - daily weights A total of 70 minutes was spent on this case with more than 50% including care coordination and counseling. Subjective ROS Limited/Unobtainable: No Constitutional: Reports: malaise, weakness HEENT: Denies: no symptoms, eye pain, blurred vision, tearing, double vision, ear pain, ear discharge, nose pain, nose congestion, throat pain, throat swelling, mouth pain, mouth swelling, other Genitourinary: Denies: no symptoms, burning, discharge, frequency, flank pain, hematuria, incontinence, pain, urgency, other Neurologic/Psychiatric: Denies: no symptoms, anxiety, depressed, emotional problems, headache, numbness, paresthesia, pre-existing deficit, seizure, tingling, tremors, weakness, other Subjective WBC downtrending Cr downtrending Objective Objective Last 24 Hour Vital Signs Date Time Temp Pulse Resp B/P (MAP) Pulse Ox O2 Delivery O2 Flow Rate FiO2 04/24/20 08:55 75 128/53 04/24/20 08:55 75 128/53 04/24/20 08:00 97.9 75 20 128/53 (78) 95 04/24/20 07:00 70 18 98 Room Air 21 04/24/20 04:00 98.5 70 20 104/52 (69) 98 04/24/20 00:00 98.4 83 20 114/53 (73) 99 04/23/20 21:00 Room Air 04/23/20 20:17 100 152/67 04/23/20 20:06 91 18 98 Room Air 21 04/23/20 20:00 98.0 102 20 152/67 (95) 99 04/23/20 16:00 98.0 93 21 125/63 (83) 97 04/23/20 12:00 98.4 71 18 132/54 (80) 100 Intake and Output 04/23/20 04/24/20 19:00 07:00 Intake Total 1782.5 ml 1110.0 ml Output Total 600 ml 500 ml Balance 1182.5 ml 610.0 ml Intake Oral 600 ml IV Total 1182.5 ml 1110.0 ml Output Urine Total 600 ml 500 ml # Voids 1 # Bowel Movements 2 Laboratory Tests 04/23/20 14:05: Sodium Level 137, Potassium Level 3.8, Chloride Level 103, Carbon Dioxide Level 24, Anion Gap 10, Blood Urea Nitrogen 31H, Creatinine 1.8H, Estimat Glomerular Filtration Rate 38.1, Glucose Level 235H, Calcium Level 7.8L 04/24/20 05:50: Sodium Level 140, Potassium Level 3.3L, Chloride Level 106, Carbon Dioxide Level 25, Anion Gap 9, Blood Urea Nitrogen 26H, Creatinine 1.7H, Estimat Glomerular Filtration Rate 40.7, Glucose Level 106#, Calcium Level 7.2L, White Blood Count 19.4H, Red Blood Count 3.62L, Hemoglobin 10.6L, Hematocrit 33.5L, Mean Corpuscular Volume 93, Mean Corpuscular Hemoglobin 29.2, Mean Corpuscular Hemoglobin Concent 31.5L, Red Cell Distribution Width 13.3, Platelet Count 235, Mean Platelet Volume 6.6, Neutrophils (%) (Auto) , Lymphocytes (%) (Auto) , Monocytes (%) (Auto) , Eosinophils (%) (Auto) , Basophils (%) (Auto) , Neutrophils % (Manual) [Pending], Lymphocytes % (Manual) [Pending], Platelet Estimate [Pending], Platelet Morphology [Pending], Phosphorus Level 2.1L, Magnesium Level 2.1, Total Bilirubin 0.4, Aspartate Amino Transf (AST/SGOT) 32, Alanine Aminotransferase (ALT/SGPT) 23, Alkaline Phosphatase 74, Total Protein 5.9L, Albumin 1.9L, Globulin 4.0, Albumin/Globulin Ratio 0.5L Height (Feet): 5 Height (Inches): 8.00 Weight (Pounds): 140 General Appearance: no apparent distress EENT: PERRL/EOMI, normal ENT inspection Neck: non-tender, normal alignment Cardiovascular: normal peripheral pulses, normal rate, regular rhythm Respiratory/Chest: chest wall non-tender, lungs clear Abdomen: normal bowel sounds, non tender, soft Neurologic: alert Rosalba Ritchie M.D. Apr 24, 2020 09:26
--- NOTE | 2020-04-24 09:32 | Consultation ---
History of Present Illness General Date patient seen: Apr 24, 2020 Time patient seen: 09:28 Chief Complaint: Fever Present Illness HPI This is a 65-year-old male from [facility]. He is bedbound secondary to CVA. Also history of diabetes and high blood pressure. He presents with chief plaint of cough and fever. Onset for 1 day. He had negative covid testing about 10 days ago. Coughing is nonproductive nature. No nausea or vomiting. No diarrhea. Unable to get any history from this patient because of his condition. History is through EMS and [facility] note. Allergies: Coded Allergies: No Known Allergies (Unverified , 04/23/20) Medication History Scheduled Amlodipine Besylate (Norvasc), 5 MG ORAL DAILY, (Reported) Atorvastatin Calcium* (Atorvastatin Calcium*), 40 MG ORAL BEDTIME, (Reported) Clopidogrel Bisulfate* (Plavix*), 75 MG ORAL DAILY, (Reported) Divalproex Sodium* (Depakote Er*), 750 MG ORAL EVERY 12 HOURS, (Reported) Escitalopram Oxalate* (Lexapro*), 15 MG ORAL DAILY, (Reported) Famotidine* (Pepcid 20mg tablet*), 20 MG ORAL DAILY, (Reported) Insulin Glargine (Lantus), 0 SUBQ BEDTIME, (Reported) Lisinopril (Lisinopril*), 20 MG ORAL DAILY, (Reported) Metoprolol/Hydrochlorothiazide (Lopressor Hct 50-25 Tablet), 1 TAB ORAL DAILY, ( Reported) Quetiapine Fumarate* (Seroquel*), 75 MG ORAL DAILY, (Reported) Sennosides-Docusate Sodium* (Sennosides-Docusate Sodium*), 1 TAB ORAL DAILY, ( Reported) Scheduled PRN Acetaminophen* (Tylenol Extra Strength*), 325 MG ORAL Q6H PRN for Mild Pain/ Temp > 100.5, (Reported) Ipratropium Gardner 0.5MG/2.5ML (Ipratropium Gardner 0.5MG/2.5ML), 0.5 MG HHN Q6H PRN for Shortness of Breath, (Reported) Miscellaneous Medications Insulin Lispro (Insulin Lispro), 100 UNIT SQ, (Reported) Patient History Healthcare decision maker Resuscitation status Advanced Directive on File Review of Systems Constitutional: Reports: no symptoms Eye: Reports: no symptoms ENT: Reports: no symptoms Respiratory: Reports: no symptoms Cardiovascular: Reports: no symptoms Gastrointestinal: Reports: no symptoms Musculoskeletal: Reports: no symptoms Skin: Reports: no symptoms Neurological: Reports: no symptoms Endocrine: Reports: no symptoms Hematologic/Lymphatic: Reports: no symptoms Physical Exam General Appearance: no apparent distress, alert Lines, tubes and drains: peripheral HEENT: normocephalic, atraumatic Neck: non-tender, normal alignment, supple, normal inspection Respiratory/Chest: chest wall non-tender, lungs clear, normal breath sounds Cardiovascular/Chest: normal peripheral pulses, normal rate, regular rhythm, regularly irregular Abdomen: normal bowel sounds, non tender, soft, no organomegaly Extremities: normal range of motion, non-tender, normal inspection, no calf tenderness, normal capillary refill, non-pitting 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, no motor/sensory deficits Last 24 Hour Vital Signs Date Time Temp Pulse Resp B/P (MAP) Pulse Ox O2 Delivery O2 Flow Rate FiO2 04/24/20 08:55 75 128/53 04/24/20 08:55 75 128/53 04/24/20 08:00 97.9 75 20 128/53 (78) 95 04/24/20 07:00 70 18 98 Room Air 21 04/24/20 04:00 98.5 70 20 104/52 (69) 98 04/24/20 00:00 98.4 83 20 114/53 (73) 99 04/23/20 21:00 Room Air 04/23/20 20:17 100 152/67 04/23/20 20:06 91 18 98 Room Air 21 04/23/20 20:00 98.0 102 20 152/67 (95) 99 04/23/20 16:00 98.0 93 21 125/63 (83) 97 04/23/20 12:00 98.4 71 18 132/54 (80) 100 Intake and Output 04/23/20 04/24/20 19:00 07:00 Intake Total 1782.5 ml 1110.0 ml Output Total 600 ml 500 ml Balance 1182.5 ml 610.0 ml Intake Oral 600 ml IV Total 1182.5 ml 1110.0 ml Output Urine Total 600 ml 500 ml # Voids 1 # Bowel Movements 2 Laboratory Tests Test 04/23/20 14:05 04/24/20 05:50 Sodium Level 137 MMOL/L (136-145) 140 MMOL/L (136-145) Potassium Level 3.8 MMOL/L (3.5-5.1) 3.3 MMOL/L (3.5-5.1) L Chloride Level 103 MMOL/L (98-107) 106 MMOL/L (98-107) Carbon Dioxide Level 24 MMOL/L (21-32) 25 MMOL/L (21-32) Anion Gap 10 mmol/L (5-15) 9 mmol/L (5-15) Blood Urea Nitrogen 31 mg/dL (7-18) H 26 mg/dL (7-18) H Creatinine 1.8 MG/DL (0.55-1.30) H 1.7 MG/DL (0.55-1.30) H Estimat Glomerular Filtration Rate 38.1 mL/min (>60) 40.7 mL/min (>60) Glucose Level 235 MG/DL (74-106) H 106 MG/DL (74-106) # Calcium Level 7.8 MG/DL (8.5-10.1) L 7.2 MG/DL (8.5-10.1) L White Blood Count 19.4 K/UL (4.8-10.8) H Red Blood Count 3.62 M/UL (4.70-6.10) L Hemoglobin 10.6 G/DL (14.2-18.0) L Hematocrit 33.5 % (42.0-52.0) L Mean Corpuscular Volume 93 FL (80-99) Mean Corpuscular Hemoglobin 29.2 PG (27.0-31.0) Mean Corpuscular Hemoglobin Concent 31.5 G/DL (32.0-36.0) L Red Cell Distribution Width 13.3 % (11.6-14.8) Platelet Count 235 K/UL (150-450) Mean Platelet Volume 6.6 FL (6.5-10.1) Neutrophils (%) (Auto) % (45.0-75.0) Lymphocytes (%) (Auto) % (20.0-45.0) Monocytes (%) (Auto) % (1.0-10.0) Eosinophils (%) (Auto) % (0.0-3.0) Basophils (%) (Auto) % (0.0-2.0) Neutrophils % (Manual) Pending Lymphocytes % (Manual) Pending Platelet Estimate Pending Platelet Morphology Pending Phosphorus Level 2.1 MG/DL (2.5-4.9) L Magnesium Level 2.1 MG/DL (1.8-2.4) Total Bilirubin 0.4 MG/DL (0.2-1.0) Aspartate Amino Transf (AST/SGOT) 32 U/L (15-37) Alanine Aminotransferase (ALT/SGPT) 23 U/L (12-78) Alkaline Phosphatase 74 U/L (46-116) Total Protein 5.9 G/DL (6.4-8.2) L Albumin 1.9 G/DL (3.4-5.0) L Globulin 4.0 g/dL Albumin/Globulin Ratio 0.5 (1.0-2.7) L Height (Feet): 5 Height (Inches): 8.00 Weight (Pounds): 140 Medications Current Medications Medications (Trade) Dose Ordered Sig/Raghu Route PRN Reason Start Time Stop Time Status Last Admin Dose Admin Acetaminophen (Tylenol) 650 mg Q4H PRN ORAL Temp >100.5 04/23/20 06:50 05/23/20 06:49 04/23/20 07:00 Amlodipine Besylate (Norvasc) 5 mg DAILY ORAL 04/24/20 09:00 05/24/20 08:59 04/24/20 08:55 Atorvastatin Calcium (Lipitor) 40 mg BEDTIME ORAL 04/23/20 21:00 07/22/20 20:59 04/23/20 20:18 Dextrose (Dextrose 50%) 25 ml Q30M PRN IV Hypoglycemia 04/23/20 06:00 07/22/20 05:59 Dextrose (Dextrose 50%) 50 ml Q30M PRN IV Hypoglycemia 04/23/20 06:00 07/22/20 05:59 Diphenhydramine HCl (Benadryl) 25 mg Q6H PRN ORAL Itching/Pruritis 04/23/20 06:00 05/23/20 05:59 Divalproex Sodium (Depakote) 500 mg DAILY ORAL 04/24/20 09:00 05/24/20 08:59 04/24/20 08:55 Divalproex Sodium (Depakote) 750 mg BEDTIME ORAL 04/23/20 21:00 05/23/20 20:59 04/23/20 20:16 Escitalopram Oxalate (Lexapro) 15 mg DAILY ORAL 04/24/20 09:00 05/24/20 08:59 04/24/20 08:55 Famotidine (Pepcid) 20 mg BID ORAL 04/23/20 09:00 07/22/20 08:59 04/24/20 08:55 Folic Acid (Folate) 1 mg DAILY ORAL 04/24/20 09:00 05/24/20 08:59 04/24/20 08:55 Heparin Sodium (Porcine) (Heparin 5000 units/ml) 5,000 units EVERY 12 HOURS SUBQ 04/23/20 09:00 06/07/20 08:59 04/24/20 08:56 Insulin Aspart (NovoLOG) BEFORE MEALS AND HS SUBQ 04/23/20 08:00 07/22/20 07:59 04/24/20 05:33 Insulin Detemir (Levemir) 10 units BEDTIME SUBQ 04/23/20 21:00 07/22/20 20:59 04/23/20 20:20 Ipratropium Gardner (Atrovent) 500 mcg Q4H PRN HHN Shortness of Breath 04/23/20 15:45 04/28/20 15:44 Linezolid 300 ml @ 300 mls/hr EVERY 12 HOURS IVPB 04/23/20 21:00 04/30/20 20:59 04/24/20 09:00 Lorazepam (Ativan) 1 mg THREE TIMES A DAY PRN ORAL Agitation 04/23/20 15:45 04/30/20 15:44 04/23/20 20:18 Magnesium Hydroxide (Mom) 30 ml DAILYPRN PRN ORAL Constipation 04/23/20 15:45 05/23/20 15:44 Metoprolol Tartrate (Lopressor) 50 mg Q12HR ORAL 04/23/20 21:00 07/22/20 20:59 04/24/20 08:55 Morphine Sulfate (Morphine Sulfate) 1 mg Q3H PRN IVP For Pain 04/23/20 06:00 04/30/20 05:59 Ondansetron HCl (Zofran) 4 mg Q6H PRN IVP Nausea & Vomiting 04/23/20 06:00 05/23/20 05:59 Piperacillin Sod/ Tazobactam Sod 3.375 gm/Sodium Chloride 110 ml @ 27.5 mls/hr EVERY 8 HOURS IVPB 04/23/20 14:00 04/28/20 13:59 04/24/20 05:33 Potassium Chloride (K-Dur) 40 meq ONCE ONCE ORAL 04/24/20 09:15 04/24/20 09:16 UNV Quetiapine Fumarate (SEROqueL) 75 mg BEDTIME ORAL 04/23/20 21:00 06/07/20 20:59 04/23/20 20:16 Sennosides (Senokot) 17.2 mg DAILY ORAL 04/24/20 09:00 05/24/20 08:59 Sodium Chloride 1,000 ml @ 100 mls/hr Q10H IV 04/23/20 06:15 05/23/20 06:14 04/23/20 17:12 Temazepam (Restoril) 15 mg HSPRN PRN ORAL Insomnia 04/23/20 06:00 04/30/20 05:59 Vancomycin HCl (Firvanq) 125 mg FOUR TIMES A DAY ORAL 04/23/20 13:30 04/30/20 13:29 04/24/20 09:00 Assessment/Plan Status: stable Assessment/Plan: Assessment/Plan Problem List: (1) History of stroke ICD Codes: Z86.73 - Personal history of transient ischemic attack (TIA), and cerebral infarction without residual deficits SNOMED: 525464781 (2) CAD (coronary artery disease) ICD Codes: I25.10 - Atherosclerotic heart disease of [place] coronary artery without angina pectoris SNOMED: 75273375 (3) UTI (urinary tract infection) ICD Codes: N39.0 - Urinary tract infection, site not specified SNOMED: 66105913 Qualifiers: Qualified Codes: N30.00 - Acute cystitis without hematuria (4) Sepsis ICD Codes: A41.9 - Sepsis, unspecified organism SNOMED: 88047551 Qualifiers: Qualified Codes: A41.9 - Sepsis, unspecified organism; R65.20 - Severe sepsis without septic shock; N17.9 - Acute kidney failure, unspecified (5) Acute metabolic encephalopathy ICD Codes: G93.41 - Metabolic encephalopathy SNOMED: 06609022, 271681121 Assessment/Plan: Patient is a 65-year-old male with past medical history of bedbound and a phasic secondary to CVA, CAD?, Who presents from [facility] for sepsis. -Serial EKG/Troponin -Echocardiogram -Stress test when stable -No indication for cardiac cath at this time -Hold heparin unless troponin rising with EKG changes -IV fluids, monitor renal function -Continue norvasc -Continue lipitor -Continue plavix Carlos Nieto MD Apr 24, 2020 09:32
--- NOTE | 2020-04-24 11:33 | Diagnostic Imaging Report ---
Indication: Shortness of breath Technique: One view of the chest Comparison: 04/23/2020 Findings: The right hemidiaphragm remains elevated. There is persistent right basilar atelectasis. The remainder of the lungs and pleural spaces are clear. The heart size is normal. Impression: Unchanged, over one day, findings as above.
[2020-04-24 12:00] VITALS: BP 132/60
[2020-04-24] MEDS ORDERED: Potassium Phosphate 15mm/250ml 250 ML IVPB SCH (12:00)
--- NOTE | 2020-04-24 12:24 | NUR ---
*-* NO INSURANCE INFORMATION IN THE BAR UNABLE TO SEND CLINICALS OR REVIEWS *-*
--- NOTE | 2020-04-24 12:24 | NUR ---
*-* INSURANCE *-* [employer] F: [phone] Addendum: 04/24/20 at 1442 by FEROZ GLYNN CM Tracking# [id number]
--- NOTE | 2020-04-24 12:36 | NUR ---
CASE MANAGEMENT:REVIEW 04/24/20 SI: SEPSIS. UTI. ACUTE RENAL FAILURE 98.1 64 20 132/60 96% ON RA WBC 19.4 K+3.3 BUN/CREAT 26/1.7 CA+ 7.2 PHOS 2.1 ALB 1.9 IS: IV NS @100ML/HR IV VANCOMYCIN HCI QQID IV ZOSYN TID IV K/PHOS X1 IV ZYVOX BID LOPRESSOR PO BID NORVASC PO QD LEVEMIR SQ QHS SEROQUEL PO QHS TYLENOL PO Q4HR/PRN HEPARIN SQ BID DEPAKOTE PO QD LEXAPRO PO QD US RENAL-PENDING CHEST X-RAY- The right hemidiaphragm remains elevated. There is persistent right basilar atelectasis. The remainder of the lungs and pleural spaces are clear. The heart size is normal. : TO MED/SURG [facility] DCP: FROM [facility] PLAN: CONT HYDRATION CORRECT K+ COVID NEGATIVE X1
--- NOTE | 2020-04-24 13:15 | Consultation ---
DATE OF CONSULTATION: 04/24/2020 PULMONARY CONSULTATION CONSULTING PHYSICIAN: Srinivas Nye MD. HISTORY OF PRESENT ILLNESS: This is a 65-year-old male who is a custodial resident. He has a history of previous CVA, hypertension, and hyperlipidemia. He was admitted to the hospital with cough and fever. The patient underwent COVID-19 testing as an outpatient, which was negative. He reports cough and phlegm production. He is admitted to the hospital for further management and care. He underwent a x-ray of his chest on arrival, which showed there is right hemidiaphragm elevation, but no other abnormalities were noted. The patient's lab workup was notable for white count 25,000, otherwise normal CBC. Creatinine 1.8. He is admitted to the hospital for broad spectrum antibiotics. PAST MEDICAL HISTORY: Hypertension, previous CVA, mood disorder, diabetes mellitus. HOME MEDICATIONS: Senna, Seroquel, Lopressor, lisinopril, Lantus, Pepcid, Lexapro, Depakote, Plavix, Lipitor, and amlodipine. CODE STATUS: Full. SOCIAL HISTORY: long term resident. PHYSICAL EXAMINATION: GENERAL: Reveals a 65-year-old male. VITAL SIGNS: Blood pressure 120/50, heart rate . O2 saturation 95% on room air. HEENT: Unremarkable. CHEST: Diminished breath sounds bilaterally. HEART: Normal heart sounds. ABDOMEN: Soft. EXTREMITIES: There is no edema. IMPRESSION: 1. Atelectasis. 2. Fever and leukocytosis. 3. Previous CVA. 4. Hypertension. 5. Diabetes mellitus. DISCUSSION: Admit to the hospital. Continue with broad spectrum antibiotics. Currently, I do not suspect an active pulmonary source, however, we will follow carefully as often x-ray, change of hydration. Agree with antibiotics. We will follow carefully. Srinivas Nye M.D. DR: LUKAS JOB#: [id number] CC:
--- NOTE | 2020-04-24 13:18 | Diagnostic Imaging Report ---
Indication: Abnormal renal function tests, chronic renal failure Technique: Grayscale and duplex images of the kidneys, retroperitoneum, and bladder were obtained. Comparison: none Findings: Right kidney measures 12.1 cm in length. Left kidney measures 12.1 cm in length. Both kidneys demonstrate normal echogenicity. No hydronephrosis. There are tiny cysts bilaterally. Normal inferior vena cava. Bladder contains a small amount of urine, contains a Newell catheter. Impression: Negative for hydronephrosis. Normal size kidneys Newell catheter within the bladder. Trace retained urine despite such Incidental finding bilateral renal cysts.
--- NOTE | 2020-04-24 15:39 | General Progress Note ---
Assessment/Plan Problem List: (1) History of stroke ICD Codes: Z86.73 - Personal history of transient ischemic attack (TIA), and cerebral infarction without residual deficits SNOMED: 551390800 (2) CAD (coronary artery disease) ICD Codes: I25.10 - Atherosclerotic heart disease of [place] coronary artery without angina pectoris SNOMED: 24536221 (3) UTI (urinary tract infection) ICD Codes: N39.0 - Urinary tract infection, site not specified SNOMED: 26371349 Qualifiers: Qualified Codes: N30.00 - Acute cystitis without hematuria (4) Sepsis ICD Codes: A41.9 - Sepsis, unspecified organism SNOMED: 72406013 Qualifiers: Qualified Codes: A41.9 - Sepsis, unspecified organism; R65.20 - Severe sepsis without septic shock; N17.9 - Acute kidney failure, unspecified (5) Acute metabolic encephalopathy ICD Codes: G93.41 - Metabolic encephalopathy SNOMED: 39256416, 327815247 Status: stable Assessment/Plan: Patient is a 65-year-old male with past medical history of bedbound and a phasic secondary to CVA, CAD?, Who presents from [facility] for sepsis. #Sepsis secondary to C. difficile versus UTI -Very high white count and renal failure suspicious for C. difficile, however patient had one loose BM this morning. Follow-up C. difficile -COVID negative -Lactate 1.3 -IV fluids -IV antibiotics per infectious disease -Follow-up blood cultures -Chest x-ray within normal limits -Monitor CBC and BMP -Infectious disease consult, appreciate recommendations -Follow-up penile complaints of pain/small blister/discussed with infectious disease #CONRAD versus CKD -IV fluid resuscitation -Monitor and manage electrolytes like -Creatinine is improving -Monitor urine output -Avoid nephrotoxic toxic medication -Nephrology consult, appreciate recommendations -Renal ultrasound: Bilateral kidney size about 12 cm, normal, no hydronephrosis or abscess noted #Questionable CAD given medication list #History of CVA -Continue home medications -Medical optimization -PT OT #Full code -POLST reviewed #DVT P PX -Heparin #Dispo -Came from alf A total of 73 minutes was spent on this case with more than 50% including care coordination and counseling. Which includes discussion with specialists including infectious disease, nephrology, nurse at bedside. Time of note may not reflect time of patient encounter Subjective Date patient seen: Apr 24, 2020 Allergies: Coded Allergies: No Known Allergies (Unverified , 04/23/20) Subjective No acute events overnight Afebrile On antibiotics ROS Limited given patient's aphasia Objective Last 24 Hour Vital Signs Date Time Temp Pulse Resp B/P (MAP) Pulse Ox O2 Delivery O2 Flow Rate FiO2 04/24/20 12:00 98.1 64 20 132/60 (84) 96 04/24/20 09:00 Room Air 04/24/20 08:55 75 128/53 04/24/20 08:55 75 128/53 04/24/20 08:00 97.9 75 20 128/53 (78) 95 04/24/20 07:00 70 18 98 Room Air 21 04/24/20 04:00 98.5 70 20 104/52 (69) 98 04/24/20 00:00 98.4 83 20 114/53 (73) 99 04/23/20 21:00 Room Air 04/23/20 20:17 100 152/67 04/23/20 20:06 91 18 98 Room Air 21 04/23/20 20:00 98.0 102 20 152/67 (95) 99 04/23/20 16:00 98.0 93 21 125/63 (83) 97 Intake and Output 04/23/20 04/24/20 19:00 07:00 Intake Total 1782.5 ml 1110.0 ml Output Total 600 ml 500 ml Balance 1182.5 ml 610.0 ml Intake Oral 600 ml IV Total 1182.5 ml 1110.0 ml Output Urine Total 600 ml 500 ml # Voids 1 # Bowel Movements 2 Laboratory Tests 04/24/20 05:50: White Blood Count 19.4H, Red Blood Count 3.62L, Hemoglobin 10.6L, Hematocrit 33.5L, Mean Corpuscular Volume 93, Mean Corpuscular Hemoglobin 29.2, Mean Corpuscular Hemoglobin Concent 31.5L, Red Cell Distribution Width 13.3, Platelet Count 235, Mean Platelet Volume 6.6, Neutrophils (%) (Auto) , Lymphocytes (%) (Auto) , Monocytes (%) (Auto) , Eosinophils (%) (Auto) , Basophils (%) (Auto) , Differential Total Cells Counted 100, Neutrophils % ( Manual) 81H, Lymphocytes % (Manual) 13L, Monocytes % (Manual) 6, Eosinophils % ( Manual) 0, Basophils % (Manual) 0, Band Neutrophils 0, Platelet Estimate Adequate, Platelet Morphology Normal, Hypochromasia 1+, Sodium Level 140, Potassium Level 3.3L, Chloride Level 106, Carbon Dioxide Level 25, Anion Gap 9, Blood Urea Nitrogen 26H, Creatinine 1.7H, Estimat Glomerular Filtration Rate 40.7, Glucose Level 106#, Calcium Level 7.2L, Phosphorus Level 2.1L, Magnesium Level 2.1, Total Bilirubin 0.4, Aspartate Amino Transf (AST/SGOT) 32, Alanine Aminotransferase (ALT/SGPT) 23, Alkaline Phosphatase 74, Total Protein 5.9L, Albumin 1.9L, Globulin 4.0, Albumin/Globulin Ratio 0.5L Height (Feet): 5 Height (Inches): 8.00 Weight (Pounds): 140 Objective GENERAL: No acute distress, appears comfortable, alert HEENT: NCAT, non-icteric eyes, pupils PERRLA Neck: No cervical lymphadenopathy, trachea midline CV: Regular rate and rhythm, no murmurs rubs or gallops RESP: Clear to auscultation bilaterally, no wheezes/rhonchi/crackles ABD: soft, non-distended, no TTP : Erythema at the meatus of the penis surrounding the Newell appears as Newell trauma, no vesicles no drainage EXT: Normal muscle tone, +5/5 muscle strength NEURO: Aphasic, alert and oriented x3 Suki Cooper DO Apr 24, 2020 15:39
[2020-04-24 16:00] VITALS: BP 122/57
--- NOTE | 2020-04-24 18:10 | Infectious Diseases Prog Note ---
Assessment/Plan Assessment/Plan Full consult dictated: A) 1) sepsis, fevers, leukocytosis, ? source, ? c.diff 2) pmh noted 3) allergies - nkda P) 1) zosyn and po vancomycin, discontinue zyvox 2) check cultures, labs and chest x-ray, c.diff. 3) will f/u Subjective HEENT: Reports: congestion Respiratory: Denies: shortness of breath Cardiovascular: Denies: chest pain Gastrointestinal/Abdominal: Denies: nausea, vomiting, diarrhea Genitourinary: Reports: other - + epperson Allergies: Coded Allergies: No Known Allergies (Unverified , 04/23/20) Objective Last 24 Hour Vital Signs Date Time Temp Pulse Resp B/P (MAP) Pulse Ox O2 Delivery O2 Flow Rate FiO2 04/24/20 16:00 99.1 66 20 122/57 (78) 97 04/24/20 12:00 98.1 64 20 132/60 (84) 96 04/24/20 09:00 Room Air 04/24/20 08:55 75 128/53 04/24/20 08:55 75 128/53 04/24/20 08:00 97.9 75 20 128/53 (78) 95 04/24/20 07:00 70 18 98 Room Air 21 04/24/20 04:00 98.5 70 20 104/52 (69) 98 04/24/20 00:00 98.4 83 20 114/53 (73) 99 04/23/20 21:00 Room Air 04/23/20 20:17 100 152/67 04/23/20 20:06 91 18 98 Room Air 21 04/23/20 20:00 98.0 102 20 152/67 (95) 99 Height (Feet): 5 Height (Inches): 8.00 Weight (Pounds): 140 General Appearance: no acute distress HEENT: normocephalic, atraumatic, anicteric Respiratory/Chest: normal breath sounds, no respiratory distress, no accessory muscle use Cardiovascular: normal rate, regular rhythm, no gallop/murmur Abdomen: normal bowel sounds, soft, non tender, no organomegaly, non distended Genitourinary: other - + epperson Microbiology Date/Time Source Procedure Growth Status 04/23/20 02:00 Blood Blood Culture - Preliminary NO GROWTH AFTER 24 HOURS Resulted 04/23/20 02:00 Blood Blood Culture - Preliminary NO GROWTH AFTER 24 HOURS Resulted 04/23/20 02:15 Nasopharynx SARS-CoV-2 RdRp Gene Assay - Final Complete Laboratory Tests Test 04/24/20 05:50 White Blood Count 19.4 K/UL (4.8-10.8) H Red Blood Count 3.62 M/UL (4.70-6.10) L Hemoglobin 10.6 G/DL (14.2-18.0) L Hematocrit 33.5 % (42.0-52.0) L Mean Corpuscular Volume 93 FL (80-99) Mean Corpuscular Hemoglobin 29.2 PG (27.0-31.0) Mean Corpuscular Hemoglobin Concent 31.5 G/DL (32.0-36.0) L Red Cell Distribution Width 13.3 % (11.6-14.8) Platelet Count 235 K/UL (150-450) Mean Platelet Volume 6.6 FL (6.5-10.1) Neutrophils (%) (Auto) % (45.0-75.0) Lymphocytes (%) (Auto) % (20.0-45.0) Monocytes (%) (Auto) % (1.0-10.0) Eosinophils (%) (Auto) % (0.0-3.0) Basophils (%) (Auto) % (0.0-2.0) Differential Total Cells Counted 100 Neutrophils % (Manual) 81 % (45-75) H Lymphocytes % (Manual) 13 % (20-45) L Monocytes % (Manual) 6 % (1-10) Eosinophils % (Manual) 0 % (0-3) Basophils % (Manual) 0 % (0-2) Band Neutrophils 0 % (0-8) Platelet Estimate Adequate Platelet Morphology Normal Hypochromasia 1+ Sodium Level 140 MMOL/L (136-145) Potassium Level 3.3 MMOL/L (3.5-5.1) L Chloride Level 106 MMOL/L (98-107) Carbon Dioxide Level 25 MMOL/L (21-32) Anion Gap 9 mmol/L (5-15) Blood Urea Nitrogen 26 mg/dL (7-18) H Creatinine 1.7 MG/DL (0.55-1.30) H Estimat Glomerular Filtration Rate 40.7 mL/min (>60) Glucose Level 106 MG/DL (74-106) # Calcium Level 7.2 MG/DL (8.5-10.1) L Phosphorus Level 2.1 MG/DL (2.5-4.9) L Magnesium Level 2.1 MG/DL (1.8-2.4) Total Bilirubin 0.4 MG/DL (0.2-1.0) Aspartate Amino Transf (AST/SGOT) 32 U/L (15-37) Alanine Aminotransferase (ALT/SGPT) 23 U/L (12-78) Alkaline Phosphatase 74 U/L (46-116) Total Protein 5.9 G/DL (6.4-8.2) L Albumin 1.9 G/DL (3.4-5.0) L Globulin 4.0 g/dL Albumin/Globulin Ratio 0.5 (1.0-2.7) L Current Medications Medications (Trade) Dose Ordered Sig/Raghu Route PRN Reason Start Time Stop Time Status Last Admin Dose Admin Acetaminophen (Tylenol) 650 mg Q4H PRN ORAL Temp >100.5 04/23/20 06:50 05/23/20 06:49 04/23/20 07:00 Amlodipine Besylate (Norvasc) 5 mg DAILY ORAL 04/24/20 09:00 05/24/20 08:59 04/24/20 08:55 Atorvastatin Calcium (Lipitor) 40 mg BEDTIME ORAL 04/23/20 21:00 07/22/20 20:59 04/23/20 20:18 Dextrose (Dextrose 50%) 25 ml Q30M PRN IV Hypoglycemia 04/23/20 06:00 07/22/20 05:59 Dextrose (Dextrose 50%) 50 ml Q30M PRN IV Hypoglycemia 04/23/20 06:00 07/22/20 05:59 Diphenhydramine HCl (Benadryl) 25 mg Q6H PRN ORAL Itching/Pruritis 04/23/20 06:00 05/23/20 05:59 Divalproex Sodium (Depakote) 500 mg DAILY ORAL 04/24/20 09:00 05/24/20 08:59 04/24/20 08:55 Divalproex Sodium (Depakote) 750 mg BEDTIME ORAL 04/23/20 21:00 05/23/20 20:59 04/23/20 20:16 Escitalopram Oxalate (Lexapro) 15 mg DAILY ORAL 04/24/20 09:00 05/24/20 08:59 04/24/20 08:55 Famotidine (Pepcid) 20 mg BID ORAL 04/23/20 09:00 07/22/20 08:59 04/24/20 17:38 Folic Acid (Folate) 1 mg DAILY ORAL 04/24/20 09:00 05/24/20 08:59 04/24/20 08:55 Heparin Sodium (Porcine) (Heparin 5000 units/ml) 5,000 units EVERY 12 HOURS SUBQ 04/23/20 09:00 06/07/20 08:59 04/24/20 08:56 Insulin Aspart (NovoLOG) BEFORE MEALS AND HS SUBQ 04/23/20 08:00 07/22/20 07:59 04/24/20 05:33 Insulin Detemir (Levemir) 10 units BEDTIME SUBQ 04/23/20 21:00 07/22/20 20:59 04/23/20 20:20 Ipratropium [place] (Atrovent) 500 mcg Q4H PRN HHN Shortness of Breath 04/23/20 15:45 04/28/20 15:44 Linezolid 300 ml @ 300 mls/hr EVERY 12 HOURS IVPB 04/23/20 21:00 04/30/20 20:59 04/24/20 09:00 Lorazepam (Ativan) 1 mg THREE TIMES A DAY PRN ORAL Agitation 04/23/20 15:45 04/30/20 15:44 04/23/20 20:18 Magnesium Hydroxide (Mom) 30 ml DAILYPRN PRN ORAL Constipation 04/23/20 15:45 05/23/20 15:44 Metoprolol Tartrate (Lopressor) 50 mg Q12HR ORAL 04/23/20 21:00 07/22/20 20:59 04/24/20 08:55 Morphine Sulfate (Morphine Sulfate) 1 mg Q3H PRN IVP For Pain 04/23/20 06:00 04/30/20 05:59 Ondansetron HCl (Zofran) 4 mg Q6H PRN IVP Nausea & Vomiting 04/23/20 06:00 05/23/20 05:59 Piperacillin Sod/ Tazobactam Sod 3.375 gm/Sodium Chloride 110 ml @ 27.5 mls/hr EVERY 8 HOURS IVPB 04/23/20 14:00 04/28/20 13:59 04/24/20 15:01 Quetiapine Fumarate (SEROqueL) 75 mg BEDTIME ORAL 04/23/20 21:00 06/07/20 20:59 04/23/20 20:16 Sennosides (Senokot) 17.2 mg DAILY ORAL 04/24/20 09:00 05/24/20 08:59 Sodium Chloride 1,000 ml @ 100 mls/hr Q10H IV 04/23/20 06:15 05/23/20 06:14 04/24/20 09:00 Temazepam (Restoril) 15 mg HSPRN PRN ORAL Insomnia 04/23/20 06:00 04/30/20 05:59 Vancomycin HCl (Firvanq) 125 mg FOUR TIMES A DAY ORAL 04/23/20 13:30 04/30/20 13:29 04/24/20 17:38 Malina Thompson MD Apr 24, 2020 18:10
--- NOTE | 2020-04-24 18:26 | NUR ---
NURSE NOTES: CDiff stool specimen collected and sent to lab.
--- NOTE | 2020-04-24 19:05 | NUR ---
HAND-OFF: Report given to NEERAJ Ron. Endorsed POC.
--- NOTE | 2020-04-24 19:10 | NUR ---
NURSE NOTES: Pt. received from NEERAJ Correa. Pt. AAOx2, on room air, breathing is even and unlabored, no indications of respiratory distress and no complaints of pain. IV left AC 18g intact and patent, running NS at 100cc/hr. Bed is low and locked, side rails x3 up, upper side rails are padded, bed alarm active, and call light is in reach.
[2020-04-24 20:00] VITALS: BP 133/61
[2020-04-24] MEDS: Atorvastatin 20mg tab ORAL SCH (20:24)
[2020-04-24] MEDS: Levemir Flexpen SUBQ SCH (20:31)
--- NOTE | 2020-04-24 23:00 | Consultation ---
DATE OF CONSULTATION: 04/24/2020 INFECTIOUS DISEASES CONSULTATION CONSULTING PHYSICIAN: Malina Thompson MD. ATTENDING PHYSICIAN: Rosalba Ritchie MD. REFERRING PHYSICIANS: 1. Rosalba Ritchie MD. 2. Suki Cooper MD. REASON FOR CONSULTATION: Sepsis, fevers, leukocytosis, possible C. diff. CHIEF COMPLAINT: The patient's chief complaint coming into the hospital is sepsis, UTI, fevers, leukocytosis. HISTORY OF PRESENT ILLNESS: This is a 65-year-old male who presents to [facility] with sepsis, fevers, leukocytosis. Workup shows it is unclear the source. He did have diarrhea, could have C. diff. The patient was initially started on Zosyn, Zyvox, and p.o. vancomycin. Blood cultures negative. Continue Zosyn and p.o. vancomycin, pending C. difficile results. Question if the patient had UTI; however, only had 2 to 4 white cells on the urinalysis with 1+ leukocyte esterase. REVIEW OF SYSTEMS: As described, he came in with fevers and sepsis. He is more alert today, came in altered mental status. HEAD AND NECK: No head pain or neck pain. CARDIAC: No chest pain. GASTROINTESTINAL: No nausea, vomiting. He does have diarrhea. GENITOURINARY: He does have a Newell. PULMONARY: No significant congestion, shortness of breath. SKIN: No rash. PAST MEDICAL HISTORY: The patient has a past medical history of following. The patient has a past medical history of CVA, diabetes, hypertension, history of acute kidney injury, possible chronic renal failure, history of CAD. ALLERGIES: No known drug allergies. No antibiotic allergies. SOCIAL HISTORY: Negative for smoking, alcohol, or drug abuse. FAMILY HISTORY: Noncontributory. MEDICATIONS: Upon reviewing the MAR, he is on following medications. He is on divalproex. He is on Lexapro, Senokot, folate, Norvasc. He is on linezolid, which I discontinued. He is zosyn and p.o. vancomycin, Levemir, quetiapine, atorvastatin, metoprolol, Atrovent, Ativan, insulin, famotidine, Zofran. Outside medications noted and reconciliated. PHYSICAL EXAMINATION: VITAL SIGNS: Temperature 99.1, pulse rate 66, respiratory rate 20, blood pressure 122/57, saturation 97% on room air. T-max is 102.5. GENERAL: More alert today, no acute distress. HEAD AND NECK: Oral exam, no thrush. Eye exam, no icterus. Normocephalic. Neck is supple. HEART: Regular. No gallop or murmur. ABDOMEN: Soft. Positive bowel sounds. Nontender. LUNGS: Few bilateral rhonchi. No crackles or rales. Mostly clear bilaterally. SKIN: No rash. MUSCULOSKELETAL: No effusions. Legs are without cellulitis. PERIPHERAL VASCULAR: No gangrene. GENITOURINARY: He has Newell. Urine is slightly cloudy. LINE SITES: Without phlebitis. NEUROLOGIC: Generalized weakness, responsive. More alert today. LABORATORY AND DIAGNOSTIC DATA: White count is 19.4 today, hemoglobin is 10.6. White count yesterday was 25.8. Creatinine 1.7. LFTs were noted. UA had 1+ leukocyte esterase, 5 to 10 rbc's, but only 2 to 4 whites white cells. Cultures, blood cultures negative. COVID testing by nasopharyngeal testing was negative. Imaging studies, the patient has had 2 chest x-rays, both show atelectasis only. C. diff is pending. ASSESSMENT/PLAN: 1. The patient has sepsis, fevers, leukocytosis, questionable source, questionable C. difficile with history of diarrhea. Questionable UTI even though urinalysis is not very consistent with UTI. Chest x-ray without pneumonia, shows atelectasis. At this time, we will continue Zosyn empirically for sepsis, fevers, leukocytosis. Also continue p.o. vancomycin for C. difficile. Pending C. difficile results. Continue Zosyn and p.o. vancomycin for now. For sepsis and possible C. difficile, check cultures and labs. Check C. difficile. 2. Diabetes. 3. Hypertension. 4. CVA. 5. Blood sugar and blood pressure treatment per primary care team. 6. Acute kidney injury. 7. Possible chronic renal failure. 8. The patient is also anemic. 9. No known allergies. 10. Social history is negative. 11. Family history is noncontributory. 12. MAR was noted. 13. Case discussed with RN. 14. Skin care protocol. 15. Continue treatment per primary consultants. Malina Thompson M.D. DR: Ruy JOB#: [id number] CC:
[2020-04-25] VITALS: BP 122/55
[2020-04-25 04:00] VITALS: BP 123/57
[2020-04-25] MEDS: Piperacillin/Tazobactam 3.375 GM in NS 110 ML IVPB SCH ×3 (05:11→22:42)
[2020-04-25] MEDS: NovoLOG Insulin Flexpen SUBQ SCH ×4 (06:30→20:28)
--- NOTE | 2020-04-25 06:52 | NUR ---
NURSE NOTES: Pt.'s blood sugar this morning was 59. Pt. awake and alert, given juice and blood sugar reassessed per protocol. Blood sugar now 76, pt. still awake and alert. Message left for Dr. Lucas to notify. Charge nurse aware.
--- NOTE | 2020-04-25 07:03 | General Progress Note ---
Assessment/Plan Status: stable Assessment/Plan: Patient is a 65-year-old male with past medical history of bedbound and a phasic secondary to CVA, CAD?, Who presents from [facility] for sepsis. #Sepsis secondary to C. difficile versus UTI -Very high white count and renal failure suspicious for C. difficile, however patient had one loose BM this morning. Follow-up C. difficile -COVID negative -Lactate 1.3 -IV fluids -IV antibiotics per infectious disease -Follow-up blood cultures -Chest x-ray within normal limits -Monitor CBC and BMP -Infectious disease consult, appreciate recommendations -zosyn and po vancomycin, discontinue zyvox -Follow-up penile complaints of pain/small blister/discussed with infectious disease -Leukocytosis improving -c diff negative #CONRAD versus CKD -IV fluid resuscitation -Monitor and manage electrolytes like -Creatinine is improving -Monitor urine output -Avoid nephrotoxic toxic medication -Nephrology consult, appreciate recommendations -Renal ultrasound: Bilateral kidney size about 12 cm, normal, no hydronephrosis or abscess noted #Questionable CAD given medication list #History of CVA -Continue home medications -Medical optimization -PT OT #Full code -POLST reviewed #DVT P PX -Heparin #Dispo -Came from custodial Time spent on encounter: 36 mins, >50% on counseling, coordination of care, d/w RN, consulting MDs. Additional 32 minutes spent on chart review, reviewed previous H&P, progress notes, consult notes, imaging, labs. Time of note doesn't reflect time of encounter. Subjective Allergies: Coded Allergies: No Known Allergies (Unverified , 04/23/20) Subjective Patient minimally verbal at baseline, appears comfortable, currently not communicating in exam, unable to obtain ROS due to clinical picture. Per overnight nurse, no acute events overnight. Objective Last 24 Hour Vital Signs Date Time Temp Pulse Resp B/P (MAP) Pulse Ox O2 Delivery O2 Flow Rate FiO2 04/25/20 04:00 98.2 61 18 123/57 (79) 95 04/25/20 00:00 98.1 72 20 122/55 (77) 94 04/24/20 21:00 Room Air 04/24/20 20:26 63 133/61 04/24/20 20:15 68 18 95 Room Air 21 04/24/20 20:00 98.6 63 20 133/61 (85) 96 04/24/20 16:00 99.1 66 20 122/57 (78) 97 04/24/20 12:00 98.1 64 20 132/60 (84) 96 04/24/20 09:00 Room Air 04/24/20 08:55 75 128/53 04/24/20 08:55 75 128/53 04/24/20 08:00 97.9 75 20 128/53 (78) 95 Intake and Output 04/24/20 04/25/20 19:00 07:00 Intake Total 2015.0 ml 1170.0 ml Output Total 350 ml 1200 ml Balance 1665.0 ml -30.0 ml Intake Oral 360 ml 300 ml IV Total 1655.0 ml 510.0 ml Other 360 ml Output Urine Total 350 ml 1200 ml # Voids 2 1 # Bowel Movements 1 2 Height (Feet): 5 Height (Inches): 8.00 Weight (Pounds): 140 Objective GENERAL: No acute distress, appears comfortable, alert, sitting up in bed comfortably HEENT: NCAT, non-icteric eyes, pupils PERRLA Neck: No cervical lymphadenopathy, trachea midline CV: Regular rate and rhythm, no murmurs rubs or gallops RESP: Clear to auscultation bilaterally, no wheezes/rhonchi/crackles ABD: soft, non-distended, no TTP : Erythema at the meatus of the penis surrounding the Newell appears as Newell trauma, no vesicles no drainage EXT: Normal muscle tone, +5/5 muscle strength NEURO: Aphasic, alert and oriented x1, self only Magan Smith M.D. Apr 25, 2020 07:03
--- NOTE | 2020-04-25 07:03 | NUR ---
NURSE NOTES: Communicated with Dr. Smith regarding pt.'s blood sugar, no new orders.
--- NOTE | 2020-04-25 07:14 | General Progress Note ---
Assessment/Plan Status: stable Subjective Allergies: Coded Allergies: No Known Allergies (Unverified , 04/23/20) Objective Last 24 Hour Vital Signs Date Time Temp Pulse Resp B/P (MAP) Pulse Ox O2 Delivery O2 Flow Rate FiO2 04/25/20 04:00 98.2 61 18 123/57 (79) 95 04/25/20 00:00 98.1 72 20 122/55 (77) 94 04/24/20 21:00 Room Air 04/24/20 20:26 63 133/61 04/24/20 20:15 68 18 95 Room Air 21 04/24/20 20:00 98.6 63 20 133/61 (85) 96 04/24/20 16:00 99.1 66 20 122/57 (78) 97 04/24/20 12:00 98.1 64 20 132/60 (84) 96 04/24/20 09:00 Room Air 04/24/20 08:55 75 128/53 04/24/20 08:55 75 128/53 04/24/20 08:00 97.9 75 20 128/53 (78) 95 Intake and Output 04/24/20 04/25/20 19:00 07:00 Intake Total 2015.0 ml 870.0 ml Output Total 350 ml 600 ml Balance 1665.0 ml 270.0 ml Intake Oral 360 ml IV Total 1655.0 ml 510.0 ml Other 360 ml Output Urine Total 350 ml 600 ml # Voids 2 # Bowel Movements 1 1 Height (Feet): 5 Height (Inches): 8.00 Weight (Pounds): 140 Magan Smith M.D. Apr 25, 2020 07:14
--- NOTE | 2020-04-25 07:42 | NUR ---
HAND-OFF: Report given to NEERAJ Haji.
--- NOTE | 2020-04-25 07:54 | NUR ---
NURSE NOTES: Patient awake and alert to name nonverbal but patient understand when you are talking to him.IV fluids in fusing as ordered.Newell catheter is draining clear yellow urine.Bed alarm on. Call light within reach Side rail padded.
[2020-04-25 08:00] VITALS: BP 120/60
[2020-04-25 08:22] LABS: BASOPHILS % (AUTO) 1.1 % (0.0-2.0); EOSINOPHILS % (AUTO) 1.3 % (0.0-3.0); HEMATOCRIT 33.4 % (42.0-52.0); HEMOGLOBIN 10.7 G/DL (14.2-18.0); LYMPHOCYTES % (AUTO) 7.3 % (20.0-45.0); MEAN CORPUSCULAR VOLUME 93 FL (80-99); MONOCYTES % (AUTO) 8.7 % (1.0-10.0); NEUTROPHILS % (AUTO) 81.6 % (45.0-75.0); PLATELET COUNT 252 K/UL (150-450); RED CELL DISTRIBUTION WIDTH 13.5 % (11.6-14.8); WHITE BLOOD COUNT 13.8 K/UL (4.8-10.8)
[2020-04-25 08:39] LABS: ANION GAP 9 mmol/L (5-15); BLOOD UREA NITROGEN 20 mg/dL (7-18); CALCIUM 7.1 MG/DL (8.5-10.1); CARBON DIOXIDE 25 MMOL/L (21-32); CHLORIDE 110 MMOL/L (98-107); CREATININE 1.4 MG/DL (0.55-1.30); POTASSIUM 3.6 MMOL/L (3.5-5.1); SODIUM 143 MMOL/L (136-145)
[2020-04-25 08:43] LABS: PHOSPHORUS 2.7 MG/DL (2.5-4.9)
[2020-04-25] MEDS: Sennosides 8.6mg tab ORAL SCH (09:00)
[2020-04-25] MEDS: Metoprolol Tartrate 50mg tab ORAL SCH ×2 (09:20→20:33)
[2020-04-25] MEDS: Depakote 500mg tab ORAL SCH (09:21)
[2020-04-25] MEDS: Vancomycin oral 125mg/2.5ml ORAL SCH ×4 (09:23→20:30)
[2020-04-25] MEDS: Heparin 5000 units/ml inj SUBQ SCH ×2 (09:25→20:35)
[2020-04-25] MEDS: Valproic Acid 250mg/5ml Liquid ORAL SCH (10:09)
--- NOTE | 2020-04-25 10:28 | NUR ---
CASE MANAGEMENT:REVIEW SI;SEPSIS. UTI. ACUTE KIDNEY INJURY. 98.2 72 20 143/70 94% ON RA WBC 13.8 BUN 20 CR 1.4 CA 7.1 IS;ZOSYN IV Q8 VANCOMYCIN PO QID PEPCID PO BID IVF NS @ 100 ML/HR HEPARIN SUBQ Q12 LOPRESSOR PO Q12 MED SURG STATUS DCP;PATIENT IS FROM [facility]
--- NOTE | 2020-04-25 10:31 | Pulmonology Progress Note ---
Subjective ROS Limited/Unobtainable: No Interval Events: None new Constitutional: Reports: no symptoms HEENT: Repors: no symptoms Respiratory: Reports: no symptoms Cardiovascular: Reports: no symptoms Gastrointestinal/Abdominal: Reports: no symptoms; Denies: nausea, vomiting, diarrhea Genitourinary: Reports: no symptoms Allergies: Coded Allergies: No Known Allergies (Unverified , 04/23/20) Objective Last 24 Hour Vital Signs Date Time Temp Pulse Resp B/P (MAP) Pulse Ox O2 Delivery O2 Flow Rate FiO2 04/25/20 09:21 67 143/70 04/25/20 09:20 67 143/70 04/25/20 08:00 98.0 64 18 120/60 (80) 96 04/25/20 04:00 98.2 61 18 123/57 (79) 95 04/25/20 00:00 98.1 72 20 122/55 (77) 94 04/24/20 21:00 Room Air 04/24/20 20:26 63 133/61 04/24/20 20:15 68 18 95 Room Air 21 04/24/20 20:00 98.6 63 20 133/61 (85) 96 04/24/20 16:00 99.1 66 20 122/57 (78) 97 04/24/20 12:00 98.1 64 20 132/60 (84) 96 Intake and Output 04/24/20 04/25/20 19:00 07:00 Intake Total 2015.0 ml 870.0 ml Output Total 350 ml 600 ml Balance 1665.0 ml 270.0 ml Intake Oral 360 ml IV Total 1655.0 ml 510.0 ml Other 360 ml Output Urine Total 350 ml 600 ml # Voids 2 # Bowel Movements 1 1 General Appearance: no acute distress HEENT: normocephalic Respiratory: chest wall non-tender, lungs clear Abdomen: normal bowel sounds Microbiology Date/Time Source Procedure Growth Status 04/23/20 02:00 Blood Blood Culture - Preliminary NO GROWTH AFTER 48 HOURS Resulted 04/23/20 02:00 Blood Blood Culture - Preliminary NO GROWTH AFTER 48 HOURS Resulted 04/23/20 02:15 Nasal Nares MRSA Culture - Final NO METHICILLIN RESISTANT STAPH AUREUS... Complete 04/23/20 02:15 Nasopharynx SARS-CoV-2 RdRp Gene Assay - Final Complete 6/29/20 18:05 Stool Clostridium difficile Toxin Assay - Final Complete 04/23/20 02:15 Rectum VRE Culture - Final Enterococcus Faecalis - Vre Complete 04/23/20 02:15 Rectum - Final NO CARBAPENEM-RESISTANT ENTEROBACTERI... Complete Laboratory Tests 04/25/20 07:45: White Blood Count 13.8H, Red Blood Count 3.60L, Hemoglobin 10.7L, Hematocrit 33.4L, Mean Corpuscular Volume 93, Mean Corpuscular Hemoglobin 29.6, Mean Corpuscular Hemoglobin Concent 32.0, Red Cell Distribution Width 13.5, Platelet Count 252, Mean Platelet Volume 6.8, Neutrophils (%) (Auto) 81.6H, Lymphocytes ( %) (Auto) 7.3L, Monocytes (%) (Auto) 8.7, Eosinophils (%) (Auto) 1.3, Basophils (%) (Auto) 1.1, Sodium Level 143, Potassium Level 3.6, Chloride Level 110H, Carbon Dioxide Level 25, Anion Gap 9, Blood Urea Nitrogen 20H, Creatinine 1.4H, Estimat Glomerular Filtration Rate 50.9, Glucose Level 70L, Calcium Level 7.1L, Phosphorus Level 2.7, Magnesium Level 2.1 Current Medications Medications (Trade) Dose Ordered Sig/Raghu Route PRN Reason Start Time Stop Time Status Last Admin Dose Admin Acetaminophen (Tylenol) 650 mg Q4H PRN ORAL Temp >100.5 04/23/20 06:50 05/23/20 06:49 04/23/20 07:00 Amlodipine Besylate (Norvasc) 5 mg DAILY ORAL 04/24/20 09:00 05/24/20 08:59 04/25/20 09:21 Atorvastatin Calcium (Lipitor) 40 mg BEDTIME ORAL 04/23/20 21:00 07/22/20 20:59 04/24/20 20:24 Dextrose (Dextrose 50%) 25 ml Q30M PRN IV Hypoglycemia 04/23/20 06:00 07/22/20 05:59 Dextrose (Dextrose 50%) 50 ml Q30M PRN IV Hypoglycemia 04/23/20 06:00 07/22/20 05:59 Diphenhydramine HCl (Benadryl) 25 mg Q6H PRN ORAL Itching/Pruritis 04/23/20 06:00 7/28/20 05:59 Escitalopram Oxalate (Lexapro) 15 mg DAILY ORAL 04/24/20 09:00 05/24/20 08:59 04/25/20 09:21 Famotidine (Pepcid) 20 mg BID ORAL 04/23/20 09:00 07/22/20 08:59 04/25/20 09:21 Folic Acid (Folate) 1 mg DAILY ORAL 04/24/20 09:00 05/24/20 08:59 04/25/20 09:21 Heparin Sodium (Porcine) (Heparin 5000 units/ml) 5,000 units EVERY 12 HOURS SUBQ 04/23/20 09:00 06/07/20 08:59 04/25/20 09:25 Insulin Aspart (NovoLOG) BEFORE MEALS AND HS SUBQ 04/23/20 08:00 07/22/20 07:59 04/24/20 20:30 Insulin Detemir (Levemir) 10 units BEDTIME SUBQ 04/23/20 21:00 07/22/20 20:59 04/24/20 20:31 Ipratropium [place] (Atrovent) 500 mcg Q4H PRN HHN Shortness of Breath 04/23/20 15:45 04/28/20 15:44 Lorazepam (Ativan) 1 mg THREE TIMES A DAY PRN ORAL Agitation 04/23/20 15:45 04/30/20 15:44 04/23/20 20:18 Magnesium Hydroxide (Mom) 30 ml DAILYPRN PRN ORAL Constipation 04/23/20 15:45 05/23/20 15:44 Metoprolol Tartrate (Lopressor) 50 mg Q12HR ORAL 04/23/20 21:00 07/22/20 20:59 04/25/20 09:20 Morphine Sulfate (Morphine Sulfate) 1 mg Q3H PRN IVP For Pain 04/23/20 06:00 04/30/20 05:59 Ondansetron HCl (Zofran) 4 mg Q6H PRN IVP Nausea & Vomiting 04/23/20 06:00 05/23/20 05:59 Piperacillin Sod/ Tazobactam Sod 3.375 gm/Sodium Chloride 110 ml @ 27.5 mls/hr EVERY 8 HOURS IVPB 04/23/20 14:00 04/28/20 13:59 04/25/20 05:11 Quetiapine Fumarate (SEROqueL) 75 mg BEDTIME ORAL 04/23/20 21:00 06/07/20 20:59 04/24/20 20:25 Sennosides (Senokot) 17.2 mg DAILY ORAL 04/24/20 09:00 05/24/20 08:59 Sodium Chloride 1,000 ml @ 100 mls/hr Q10H IV 04/23/20 06:15 05/23/20 06:14 04/24/20 22:12 Temazepam (Restoril) 15 mg HSPRN PRN ORAL Insomnia 04/23/20 06:00 04/30/20 05:59 Valproic Acid (Depakene) 500 mg DAILY ORAL 04/25/20 10:00 05/24/20 08:59 04/25/20 10:09 Valproic Acid (Depakene) 750 mg BEDTIME ORAL 04/25/20 21:00 05/23/20 20:59 Vancomycin HCl (Firvanq) 125 mg FOUR TIMES A DAY ORAL 04/23/20 13:30 04/30/20 13:29 04/25/20 09:23 Assessment/Plan Assessment/Plan IMPRESSION: 1. Atelectasis. 2. Fever and leukocytosis. 3. Previous CVA. 4. Hypertension. 5. Diabetes mellitus. DISCUSSION: Continue with broad spectrum antibiotics. Currently, I do not suspect an active pulmonary source, however, I will follow carefully as often x-ray may change after hydration. Currently saturating well on RA Dale Ovalle Omar Syed MD Apr 25, 2020 10:31
[2020-04-25 12:00] VITALS: BP 124/43
--- NOTE | 2020-04-25 13:10 | Nephrology Progress Note ---
Assessment/Plan Plan #CONRAD on CKD #Sepsis due to UTI vs c diff #leukocytosis #HTN #DM #HLD #h/o CVA #bedbound - IVF - renal US Impression: Negative for hydronephrosis. Normal size kidneys Newell catheter within the bladder. Trace retained urine despite such Incidental finding bilateral renal cysts. - defer further work up pending evolution of renal function - antibiotics per ID - amlodpine 5mg daily - metop 50mg BID - avoid nephrotoxins - strict I&Os - stools studies - daily weights A total of 70 minutes was spent on this case with more than 50% including care coordination and counseling. Subjective ROS Limited/Unobtainable: No Constitutional: Reports: weakness HEENT: Denies: no symptoms, eye pain, blurred vision, tearing, double vision, ear pain, ear discharge, nose pain, nose congestion, throat pain, throat swelling, mouth pain, mouth swelling, other Genitourinary: Denies: no symptoms, burning, discharge, frequency, flank pain, hematuria, incontinence, pain, urgency, other Neurologic/Psychiatric: Denies: no symptoms, anxiety, depressed, emotional problems, headache, numbness, paresthesia, pre-existing deficit, seizure, tingling, tremors, weakness, other Subjective WBC downtrending Cr downtrending Renal US: Impression: Negative for hydronephrosis. Normal size kidneys Newell catheter within the bladder. Trace retained urine despite such Incidental finding bilateral renal cysts. Objective Objective Last 24 Hour Vital Signs Date Time Temp Pulse Resp B/P (MAP) Pulse Ox O2 Delivery O2 Flow Rate FiO2 04/25/20 09:21 67 143/70 04/25/20 09:20 67 143/70 04/25/20 09:00 Room Air 04/25/20 08:00 98.0 64 18 120/60 (80) 96 04/25/20 04:00 98.2 61 18 123/57 (79) 95 04/25/20 00:00 98.1 72 20 122/55 (77) 94 04/24/20 21:00 Room Air 04/24/20 20:26 63 133/61 04/24/20 20:15 68 18 95 Room Air 21 04/24/20 20:00 98.6 63 20 133/61 (85) 96 04/24/20 16:00 99.1 66 20 122/57 (78) 97 Intake and Output 04/24/20 04/25/20 19:00 07:00 Intake Total 2015.0 ml 870.0 ml Output Total 350 ml 600 ml Balance 1665.0 ml 270.0 ml Intake Oral 360 ml IV Total 1655.0 ml 510.0 ml Other 360 ml Output Urine Total 350 ml 600 ml # Voids 2 # Bowel Movements 1 1 Laboratory Tests 04/25/20 07:45: White Blood Count 13.8H, Red Blood Count 3.60L, Hemoglobin 10.7L, Hematocrit 33.4L, Mean Corpuscular Volume 93, Mean Corpuscular Hemoglobin 29.6, Mean Corpuscular Hemoglobin Concent 32.0, Red Cell Distribution Width 13.5, Platelet Count 252, Mean Platelet Volume 6.8, Neutrophils (%) (Auto) 81.6H, Lymphocytes ( %) (Auto) 7.3L, Monocytes (%) (Auto) 8.7, Eosinophils (%) (Auto) 1.3, Basophils (%) (Auto) 1.1, Sodium Level 143, Potassium Level 3.6, Chloride Level 110H, Carbon Dioxide Level 25, Anion Gap 9, Blood Urea Nitrogen 20H, Creatinine 1.4H, Estimat Glomerular Filtration Rate 50.9, Glucose Level 70L, Calcium Level 7.1L, Phosphorus Level 2.7, Magnesium Level 2.1 Height (Feet): 5 Height (Inches): 8.00 Weight (Pounds): 140 Rosalba Ritchie M.D. Apr 25, 2020 13:10
--- NOTE | 2020-04-25 13:41 | Cardiology Progress Note ---
Assessment/Plan Status: stable Assessment/Plan Assessment/Plan Problem List: (1) History of stroke ICD Codes: Z86.73 - Personal history of transient ischemic attack (TIA), and cerebral infarction without residual deficits SNOMED: 807155183 (2) CAD (coronary artery disease) ICD Codes: I25.10 - Atherosclerotic heart disease of [place] coronary artery without angina pectoris SNOMED: 80402816 (3) UTI (urinary tract infection) ICD Codes: N39.0 - Urinary tract infection, site not specified SNOMED: 20729319 Qualifiers: Qualified Codes: N30.00 - Acute cystitis without hematuria (4) Sepsis ICD Codes: A41.9 - Sepsis, unspecified organism SNOMED: 19092017 Qualifiers: Qualified Codes: A41.9 - Sepsis, unspecified organism; R65.20 - Severe sepsis without septic shock; N17.9 - Acute kidney failure, unspecified (5) Acute metabolic encephalopathy ICD Codes: G93.41 - Metabolic encephalopathy SNOMED: 90094634, 287663704 Assessment/Plan: Patient is a 65-year-old male with past medical history of bedbound and a phasic secondary to CVA, CAD?, Who presents from [facility] for sepsis. -Serial EKG/Troponin -Echocardiogram with normal LV function and mild valvular disease -Stress test when stable -No indication for cardiac cath at this time -Hold heparin unless troponin rising with EKG changes -IV fluids, monitor renal function -Continue norvasc -Continue lipitor -Continue plavix Subjective Cardiovascular: Reports: no symptoms Respiratory: Reports: no symptoms Gastrointestinal/Abdominal: Reports: no symptoms Genitourinary: Reports: no symptoms Subjective No acute events, renal US negative, Creatinine improving, BP stable Objective Last 24 Hour Vital Signs Date Time Temp Pulse Resp B/P (MAP) Pulse Ox O2 Delivery O2 Flow Rate FiO2 04/25/20 09:21 67 143/70 04/25/20 09:20 67 143/70 04/25/20 09:00 Room Air 04/25/20 08:45 65 18 95 Room Air 21 04/25/20 08:00 98.0 64 18 120/60 (80) 96 04/25/20 04:00 98.2 61 18 123/57 (79) 95 04/25/20 00:00 98.1 72 20 122/55 (77) 94 04/24/20 21:00 Room Air 04/24/20 20:26 63 133/61 04/24/20 20:15 68 18 95 Room Air 21 04/24/20 20:00 98.6 63 20 133/61 (85) 96 04/24/20 16:00 99.1 66 20 122/57 (78) 97 General Appearance: no apparent distress, alert EENT: PERRL/EOMI, normal ENT inspection, TMs normal, pharynx normal Neck: non-tender, normal alignment Rhythm: NSR Cardiovascular: normal peripheral pulses, normal rate, regular rhythm Respiratory/Chest: chest wall non-tender, lungs clear, normal breath sounds Abdomen: normal bowel sounds, non tender, soft, no organomegaly Extremities: normal range of motion, non-tender, normal inspection 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, no motor/sensory deficits Intake and Output 04/24/20 04/25/20 19:00 07:00 Intake Total 2015.0 ml 870.0 ml Output Total 350 ml 600 ml Balance 1665.0 ml 270.0 ml Intake Oral 360 ml IV Total 1655.0 ml 510.0 ml Other 360 ml Output Urine Total 350 ml 600 ml # Voids 2 # Bowel Movements 1 1 Laboratory Tests Test 04/25/20 07:45 White Blood Count 13.8 K/UL (4.8-10.8) H Red Blood Count 3.60 M/UL (4.70-6.10) L Hemoglobin 10.7 G/DL (14.2-18.0) L Hematocrit 33.4 % (42.0-52.0) L Mean Corpuscular Volume 93 FL (80-99) Mean Corpuscular Hemoglobin 29.6 PG (27.0-31.0) Mean Corpuscular Hemoglobin Concent 32.0 G/DL (32.0-36.0) Red Cell Distribution Width 13.5 % (11.6-14.8) Platelet Count 252 K/UL (150-450) Mean Platelet Volume 6.8 FL (6.5-10.1) Neutrophils (%) (Auto) 81.6 % (45.0-75.0) H Lymphocytes (%) (Auto) 7.3 % (20.0-45.0) L Monocytes (%) (Auto) 8.7 % (1.0-10.0) Eosinophils (%) (Auto) 1.3 % (0.0-3.0) Basophils (%) (Auto) 1.1 % (0.0-2.0) Sodium Level 143 MMOL/L (136-145) Potassium Level 3.6 MMOL/L (3.5-5.1) Chloride Level 110 MMOL/L (98-107) H Carbon Dioxide Level 25 MMOL/L (21-32) Anion Gap 9 mmol/L (5-15) Blood Urea Nitrogen 20 mg/dL (7-18) H Creatinine 1.4 MG/DL (0.55-1.30) H Estimat Glomerular Filtration Rate 50.9 mL/min (>60) Glucose Level 70 MG/DL (74-106) L Calcium Level 7.1 MG/DL (8.5-10.1) L Phosphorus Level 2.7 MG/DL (2.5-4.9) Magnesium Level 2.1 MG/DL (1.8-2.4) Microbiology Date/Time Source Procedure Growth Status 04/23/20 02:00 Blood Blood Culture - Preliminary NO GROWTH AFTER 48 HOURS Resulted 04/23/20 02:00 Blood Blood Culture - Preliminary NO GROWTH AFTER 48 HOURS Resulted 04/23/20 02:15 Nasal Nares MRSA Culture - Final NO METHICILLIN RESISTANT STAPH AUREUS... Complete 04/23/20 02:15 Nasopharynx SARS-CoV-2 RdRp Gene Assay - Final Complete 04/24/20 18:05 Stool Clostridium difficile Toxin Assay - Final Complete 04/23/20 02:15 Rectum VRE Culture - Final Enterococcus Faecalis - Vre Complete 04/23/20 02:15 Rectum - Final NO CARBAPENEM-RESISTANT ENTEROBACTERI... Complete Carlos Nieto MD Apr 25, 2020 13:41
--- NOTE | 2020-04-25 14:28 | NUR ---
*-* INSURANCE *-* [facility] F: [phone] Tracking# [id number]
[2020-04-25 16:00] VITALS: BP 136/62
--- NOTE | 2020-04-25 18:43 | NUR ---
NURSE NOTES: Skin care given,patient had loose brown stool .Patient.DR Rhodes notified of Microbiology report of positive VRE rectum.Bed alarmon,call light within reach.
--- NOTE | 2020-04-25 19:26 | NUR ---
HAND-OFF: Report given to IRENE PICKARD. Addendum: 04/25/20 at 1929 by OBIE WOLFE RN RN oncoming Nurse aware of fall risk.
--- NOTE | 2020-04-25 19:30 | NUR ---
NURSE NOTES: RECEIVED PATIENT FROM NEERAJ RAGLAND. PATIENT IS AWAKE, AAOX4, ON ROOM AIR, NO ACUTE DISTRESS NOTED. PIV INTACT AND PATENT RUNNING NS @100ML/HR. WOLF CATH IN PLACE, DRAINING WELL, WOLF ANCHOR PRESENT. BED IS LOCKED AND LOW, BED ALARMS ACTIVE. SIDE RAILS UPX2 AND PADDED. CALL LIGHT IS WITHIN REACH .WILL CONTINUE TO MONITOR.
[2020-04-25 20:00] VITALS: BP 145/71
[2020-04-25] MEDS: Atorvastatin 20mg tab ORAL SCH (20:33)
[2020-04-25] MEDS: Levemir Flexpen SUBQ SCH (20:35)
[2020-04-25] MEDS ORDERED: Valproic Acid 250mg/5ml Liquid ORAL SCH (21:00)
[2020-04-26] VITALS: BP 139/57
[2020-04-26 04:00] VITALS: BP 152/60
[2020-04-26] MEDS: Piperacillin/Tazobactam 3.375 GM in NS 110 ML IVPB SCH ×2 (05:27→15:13)
[2020-04-26] MEDS: NovoLOG Insulin Flexpen SUBQ SCH (06:30)
--- NOTE | 2020-04-26 07:15 | NUR ---
NURSE NOTES: Received report from Brandi, RN. Patient is awake with delayed speech/response but able to make needs known. On room air, no signs of distress or labored breathing. IV intact, patent, and infusing IV antibiotics. Newell intact, patent, and draining straw yellow urine. Bed in lowest position with call light in reach. Will continue with plan of care.
--- NOTE | 2020-04-26 07:22 | NUR ---
HAND-OFF: Report given to NEERAJ Lara.
--- NOTE | 2020-04-26 07:23 | NUR ---
HAND-OFF: Report given to NEERAJ Sahu.
--- NOTE | 2020-04-26 07:29 | General Progress Note ---
Assessment/Plan Status: stable Assessment/Plan: Patient is a 65-year-old male with past medical history of bedbound and a phasic secondary to CVA, CAD?, Who [facility]. #Sepsis secondary to UTI -Very high white count and renal failure suspicious for C. difficile, however patient had one loose BM this morning. Follow-up C. difficile --> negative -COVID negative -Lactate 1.3 -IV fluids -IV antibiotics per infectious disease -Follow-up blood cultures -Chest x-ray within normal limits -Monitor CBC and BMP -Infectious disease consult, appreciate recommendations -zosyn and po vancomycin, discontinue zyvox -Follow-up penile complaints of pain/small blister/discussed with infectious disease -Leukocytosis improving -no AM labs, will f/u -will likely d/c back to SNF in 1-2 days #CONRAD versus CKD -Cr 2.3 on admission, unknown b/l --> improving -IV fluid resuscitation -Monitor and manage electrolytes, monitor urine output -Avoid nephrotoxic toxic medications, holding home lisinopril -Renal ultrasound: Bilateral kidney size about 12 cm, normal, no hydronephrosis or abscess noted -Nephrology consult, appreciate recommendations #Questionable CAD given medication list #History of CVA #HTN -Continue home medications -holding home lisinopril 2/2 CONRAD -increased home amlodipine from 5 mg to 10 mg q daily -cont MTP 30 BID -hydralazine PRN for SBP >160 -Medical optimization -PT OT -cont plavix #DMT2 #Hypoglycemia -Hgb A1c 8.5 -decrease levemir 10 U --> 5 u qHS -accucehcks, ISS low #Full code -POLST reviewed #DVT P PX -Heparin #Dispo -Came from [facility] Time spent on encounter: 36 mins, >50% on counseling, coordination of care, d/w RN, consulting MDs. Time of note doesn't reflect time of encounter. Subjective Allergies: Coded Allergies: No Known Allergies (Unverified , 04/23/20) Subjective Afebrile overnight, hypertensive. Hypoglycemic overnight. Changed insulin routine. Patient minimally verbal at baseline, appears comfortable, no issues per nurse. Objective Last 24 Hour Vital Signs Date Time Temp Pulse Resp B/P (MAP) Pulse Ox O2 Delivery O2 Flow Rate FiO2 04/26/20 04:00 97.9 60 19 152/60 (90) 95 04/26/20 00:00 98.1 66 19 139/57 (84) 97 04/25/20 21:00 Room Air 04/25/20 20:33 69 145/71 04/25/20 20:17 68 18 94 Room Air 21 04/25/20 20:00 99.5 69 19 145/71 (95) 98 04/25/20 16:00 98.2 64 18 136/62 (86) 95 04/25/20 12:00 97.0 59 18 124/43 (70) 97 04/25/20 09:21 67 143/70 04/25/20 09:20 67 143/70 04/25/20 09:00 Room Air 04/25/20 08:45 65 18 95 Room Air 21 04/25/20 08:00 98.0 64 18 120/60 (80) 96 Intake and Output 04/25/20 04/26/20 19:00 07:00 Intake Total 1780 ml 1137.5 ml Output Total 800 ml 300 ml Balance 980 ml 837.5 ml Intake Oral 880 ml IV Total 900 ml 1137.5 ml Output Urine Total 800 ml 300 ml # Bowel Movements 3 Laboratory Tests 04/25/20 07:45: White Blood Count 13.8H, Red Blood Count 3.60L, Hemoglobin 10.7L, Hematocrit 33.4L, Mean Corpuscular Volume 93, Mean Corpuscular Hemoglobin 29.6, Mean Corpuscular Hemoglobin Concent 32.0, Red Cell Distribution Width 13.5, Platelet Count 252, Mean Platelet Volume 6.8, Neutrophils (%) (Auto) 81.6H, Lymphocytes ( %) (Auto) 7.3L, Monocytes (%) (Auto) 8.7, Eosinophils (%) (Auto) 1.3, Basophils (%) (Auto) 1.1, Sodium Level 143, Potassium Level 3.6, Chloride Level 110H, Carbon Dioxide Level 25, Anion Gap 9, Blood Urea Nitrogen 20H, Creatinine 1.4H, Estimat Glomerular Filtration Rate 50.9, Glucose Level 70L, Calcium Level 7.1L, Phosphorus Level 2.7, Magnesium Level 2.1 04/25/20 11:49: POC Whole Blood Glucose 111H 04/25/20 17:00: POC Whole Blood Glucose 70L 04/25/20 18:32: POC Whole Blood Glucose [Pending] 04/26/20 05:33: POC Whole Blood Glucose 47L 04/26/20 06:27: POC Whole Blood Glucose 85 Height (Feet): 5 Height (Inches): 8.00 Weight (Pounds): 137 Objective GENERAL: No acute distress, appears comfortable, alert, sitting up in bed comfortably HEENT: NCAT, non-icteric eyes, pupils PERRLA Neck: No cervical lymphadenopathy, trachea midline CV: Regular rate and rhythm, no murmurs rubs or gallops RESP: Clear to auscultation bilaterally, no wheezes/rhonchi/crackles ABD: soft, non-distended, no TTP : Erythema at the meatus of the penis surrounding the Newell appears as Newell trauma, no vesicles no drainage EXT: Normal muscle tone, +5/5 muscle strength NEURO: Aphasic, alert and oriented x1, self only Magan Smith M.D. Apr 26, 2020 07:29
[2020-04-26 08:00] VITALS: BP 135/62
[2020-04-26 08:47] LABS: BASOPHILS % (AUTO) 1.8 % (0.0-2.0); EOSINOPHILS % (AUTO) 1.1 % (0.0-3.0); HEMATOCRIT 32.9 % (42.0-52.0); HEMOGLOBIN 10.5 G/DL (14.2-18.0); LYMPHOCYTES % (AUTO) 10.9 % (20.0-45.0); MEAN CORPUSCULAR VOLUME 92 FL (80-99); MONOCYTES % (AUTO) 11.1 % (1.0-10.0); NEUTROPHILS % (AUTO) 75.2 % (45.0-75.0); PLATELET COUNT 306 K/UL (150-450); RED BLOOD COUNT 3.57 M/UL (4.70-6.10); RED CELL DISTRIBUTION WIDTH 13.4 % (11.6-14.8); WHITE BLOOD COUNT 9.9 K/UL (4.8-10.8)
--- NOTE | 2020-04-26 08:50 | Nephrology Progress Note ---
Assessment/Plan Plan #CONRAD on CKD #Sepsis due to UTI vs c diff #leukocytosis #HTN #DM #HLD #h/o CVA #bedbound - DDC IVF - increase amlodipine 10 mg daily - renal US Impression: Negative for hydronephrosis. Normal size kidneys Newell catheter within the bladder. Trace retained urine despite such Incidental finding bilateral renal cysts. - defer further work up pending evolution of renal function - antibiotics per ID - metop 50mg BID - avoid nephrotoxins - strict I&Os - stools studies - daily weights A total of 70 minutes was spent on this case with more than 50% including care coordination and counseling. Subjective ROS Limited/Unobtainable: Yes Subjective Labs pending today BP uptrending Renal US: Impression: Negative for hydronephrosis. Normal size kidneys Newell catheter within the bladder. Trace retained urine despite such Incidental finding bilateral renal cysts. Objective Objective Last 24 Hour Vital Signs Date Time Temp Pulse Resp B/P (MAP) Pulse Ox O2 Delivery O2 Flow Rate FiO2 04/26/20 08:00 98.1 61 17 135/62 (86) 97 04/26/20 04:00 97.9 60 19 152/60 (90) 95 04/26/20 00:00 98.1 66 19 139/57 (84) 97 04/25/20 21:00 Room Air 04/25/20 20:33 69 145/71 04/25/20 20:17 68 18 94 Room Air 21 04/25/20 20:00 99.5 69 19 145/71 (95) 98 04/25/20 16:00 98.2 64 18 136/62 (86) 95 04/25/20 12:00 97.0 59 18 124/43 (70) 97 04/25/20 09:21 67 143/70 04/25/20 09:20 67 143/70 04/25/20 09:00 Room Air Intake and Output 04/25/20 04/26/20 19:00 07:00 Intake Total 1780 ml 1137.5 ml Output Total 800 ml 300 ml Balance 980 ml 837.5 ml Intake Oral 880 ml IV Total 900 ml 1137.5 ml Output Urine Total 800 ml 300 ml # Bowel Movements 3 Laboratory Tests 04/25/20 11:49: POC Whole Blood Glucose 111H 04/25/20 17:00: POC Whole Blood Glucose 70L 04/25/20 18:32: POC Whole Blood Glucose [Pending] 04/26/20 05:33: POC Whole Blood Glucose 47L 04/26/20 06:27: POC Whole Blood Glucose 85 04/26/20 07:55: White Blood Count [Pending], Red Blood Count [Pending], Hemoglobin [Pending], Hematocrit [Pending], Mean Corpuscular Volume [Pending], Mean Corpuscular Hemoglobin [Pending], Mean Corpuscular Hemoglobin Concent [Pending], Red Cell Distribution Width [Pending], Platelet Count [Pending], Mean Platelet Volume [ Pending], Neutrophils (%) (Auto) [Pending], Lymphocytes (%) (Auto) [Pending], Monocytes (%) (Auto) [Pending], Eosinophils (%) (Auto) [Pending], Basophils (%) (Auto) [Pending], Sodium Level [Pending], Potassium Level [Pending], Chloride Level [Pending], Carbon Dioxide Level [Pending], Blood Urea Nitrogen [Pending], Creatinine [Pending], Estimat Glomerular Filtration Rate [Pending], Glucose Level [Pending], Calcium Level [Pending] Height (Feet): 5 Height (Inches): 8.00 Weight (Pounds): 137 Rosalba Ritchie M.D. Apr 26, 2020 08:50
[2020-04-26 08:53] LABS: ANION GAP 5 mmol/L (5-15); BLOOD UREA NITROGEN 14 mg/dL (7-18); CALCIUM 7.4 MG/DL (8.5-10.1); CARBON DIOXIDE 26 MMOL/L (21-32); CHLORIDE 113 MMOL/L (98-107); CREATININE 1.2 MG/DL (0.55-1.30); POTASSIUM 3.4 MMOL/L (3.5-5.1); SODIUM 144 MMOL/L (136-145)
[2020-04-26] MEDS: Sennosides 8.6mg tab ORAL SCH (09:00)
[2020-04-26] MEDS ORDERED: HydrALAZINE 10mg Tab ORAL PRN (09:00)
--- NOTE | 2020-04-26 09:24 | NUR ---
RD ASSESSMENT & RECOMMENDATIONS SEE CARE ACTIVITY FOR COMPLETE ASSESSMENT DAILY ESTIMATED NEEDS: Needs based on Diabetes/ 62.7kg 25-30 kcals/kg 1462-2425 total kcals 1-1.3 g protein/kg 63-82 g total protein 25-30 mL/kg 8223-7812 total fluid mLs NUTRITION DIAGNOSIS: * Swallowing difficulty R/T dysphagia, h/o CVA as evidenced by pt on pureed moist texture diet w/ NTL. * Altered nutrition related lab values R/T diabetes as evidenced by w/ hyperglycemia upon adm (BGs 200's) -> now w/ hypoglycemic episodes (47, 70). CURRENT DIET:CCHO LOW, pureed moist w/ NTL PO DIET RECOMMENDATIONS: CCHO MED/ texture per NUMERICAL ANALYSIS GROUP MANAGER + Glucerna TID w/ meals ADDITIONAL RECOMMENDATIONS: * Calibrated bedscale wt * Monitor BGs closely for hypoglycemia -> Levemir lowered from 10-> 5 units, monitor need to DC w/ continued poor PO intake -> Consider adding D5 to IVF w/ continued poor PO -> Encourage PO intake and HS snack -> W/ continued poor PO, consider liberalizing diet to regular * Consider NUMERICAL ANALYSIS GROUP MANAGER eval for appropriate texture
[2020-04-26] MEDS: Vancomycin oral 125mg/2.5ml ORAL SCH ×2 (09:26→12:45)
[2020-04-26] MEDS: Metoprolol Tartrate 50mg tab ORAL SCH ×2 (09:26→09:42)
[2020-04-26] MEDS: Valproic Acid 250mg/5ml Liquid ORAL SCH ×2 (09:27→09:42)
[2020-04-26] MEDS: Heparin 5000 units/ml inj SUBQ SCH (09:29)
--- NOTE | 2020-04-26 09:34 | Pulmonology Progress Note ---
Subjective ROS Limited/Unobtainable: Yes Interval Events: None new Constitutional: Reports: no symptoms HEENT: Repors: no symptoms Respiratory: Reports: no symptoms Cardiovascular: Reports: no symptoms Gastrointestinal/Abdominal: Reports: no symptoms; Denies: nausea, vomiting, diarrhea Genitourinary: Reports: no symptoms Allergies: Coded Allergies: No Known Allergies (Unverified , 04/23/20) Objective Last 24 Hour Vital Signs Date Time Temp Pulse Resp B/P (MAP) Pulse Ox O2 Delivery O2 Flow Rate FiO2 04/26/20 09:26 61 135/62 04/26/20 09:26 61 135/62 04/26/20 08:00 98.1 61 17 135/62 (86) 97 04/26/20 04:00 97.9 60 19 152/60 (90) 95 04/26/20 00:00 98.1 66 19 139/57 (84) 97 04/25/20 21:00 Room Air 04/25/20 20:33 69 145/71 04/25/20 20:17 68 18 94 Room Air 21 04/25/20 20:00 99.5 69 19 145/71 (95) 98 04/25/20 16:00 98.2 64 18 136/62 (86) 95 04/25/20 12:00 97.0 59 18 124/43 (70) 97 Intake and Output 04/25/20 04/26/20 19:00 07:00 Intake Total 1780 ml 1137.5 ml Output Total 800 ml 300 ml Balance 980 ml 837.5 ml Intake Oral 880 ml IV Total 900 ml 1137.5 ml Output Urine Total 800 ml 300 ml # Bowel Movements 3 General Appearance: no acute distress HEENT: normocephalic Respiratory: chest wall non-tender, lungs clear Abdomen: normal bowel sounds Microbiology Date/Time Source Procedure Growth Status 04/24/20 18:05 Stool Clostridium difficile Toxin Assay - Final Complete Laboratory Tests 04/25/20 11:49: POC Whole Blood Glucose 111H 04/25/20 17:00: POC Whole Blood Glucose 70L 04/25/20 18:32: POC Whole Blood Glucose [Pending] 04/26/20 05:33: POC Whole Blood Glucose 47L 04/26/20 06:27: POC Whole Blood Glucose 85 04/26/20 07:55: White Blood Count 9.9, Red Blood Count 3.57L, Hemoglobin 10.5L, Hematocrit 32.9L , Mean Corpuscular Volume 92, Mean Corpuscular Hemoglobin 29.4, Mean Corpuscular Hemoglobin Concent 31.8L, Red Cell Distribution Width 13.4, Platelet Count 306, Mean Platelet Volume 6.3L, Neutrophils (%) (Auto) 75.2H, Lymphocytes (%) (Auto) 10.9L, Monocytes (%) (Auto) 11.1H, Eosinophils (%) (Auto ) 1.1, Basophils (%) (Auto) 1.8, Sodium Level 144, Potassium Level 3.4L, Chloride Level 113H, Carbon Dioxide Level 26, Anion Gap 5, Blood Urea Nitrogen 14, Creatinine 1.2, Estimat Glomerular Filtration Rate > 60, Glucose Level 85, Calcium Level 7.4L Current Medications Medications (Trade) Dose Ordered Sig/Raghu Route PRN Reason Start Time Stop Time Status Last Admin Dose Admin Acetaminophen (Tylenol) 650 mg Q4H PRN ORAL Temp >100.5 04/23/20 06:50 05/23/20 06:49 04/23/20 07:00 Amlodipine Besylate (Norvasc) 10 mg DAILY ORAL 04/26/20 09:00 05/24/20 08:59 04/26/20 09:26 Atorvastatin Calcium (Lipitor) 40 mg BEDTIME ORAL 04/23/20 21:00 07/22/20 20:59 04/25/20 20:33 Clopidogrel Bisulfate (Plavix) 75 mg DAILY ORAL 04/26/20 09:00 05/26/20 08:59 04/26/20 09:26 Dextrose (Dextrose 50%) 25 ml Q30M PRN IV Hypoglycemia 04/23/20 06:00 07/22/20 05:59 Dextrose (Dextrose 50%) 50 ml Q30M PRN IV Hypoglycemia 04/23/20 06:00 07/22/20 05:59 Diphenhydramine HCl (Benadryl) 25 mg Q6H PRN ORAL Itching/Pruritis 04/23/20 06:00 05/23/20 05:59 Escitalopram Oxalate (Lexapro) 15 mg DAILY ORAL 04/24/20 09:00 05/24/20 08:59 04/26/20 09:26 Famotidine (Pepcid) 20 mg BID ORAL 04/23/20 09:00 07/22/20 08:59 04/26/20 09:26 Folic Acid (Folate) 1 mg DAILY ORAL 04/24/20 09:00 05/24/20 08:59 04/26/20 09:26 Heparin Sodium (Porcine) (Heparin 5000 units/ml) 5,000 units EVERY 12 HOURS SUBQ 04/23/20 09:00 06/07/20 08:59 04/26/20 09:29 Hydralazine HCl (Apresoline) 10 mg Q6H PRN ORAL For High Blood Pressure 04/26/20 09:00 07/25/20 08:59 Insulin Aspart (NovoLOG) BEFORE MEALS AND HS SUBQ 04/26/20 11:30 07/25/20 11:29 Insulin Detemir (Levemir) 5 units BEDTIME SUBQ 04/26/20 21:00 07/22/20 20:59 Ipratropium [place] (Atrovent) 500 mcg Q4H PRN HHN Shortness of Breath 04/23/20 15:45 04/28/20 15:44 Lorazepam (Ativan) 1 mg THREE TIMES A DAY PRN ORAL Agitation 04/23/20 15:45 04/30/20 15:44 04/23/20 20:18 Magnesium Hydroxide (Mom) 30 ml DAILYPRN PRN ORAL Constipation 04/23/20 15:45 05/23/20 15:44 Metoprolol Tartrate (Lopressor) 50 mg Q12HR ORAL 04/23/20 21:00 07/22/20 20:59 04/26/20 09:26 Morphine Sulfate (Morphine Sulfate) 1 mg Q3H PRN IVP For Pain 04/23/20 06:00 04/30/20 05:59 Ondansetron HCl (Zofran) 4 mg Q6H PRN IVP Nausea & Vomiting 04/23/20 06:00 05/23/20 05:59 Piperacillin Sod/ Tazobactam Sod 3.375 gm/Sodium Chloride 110 ml @ 27.5 mls/hr EVERY 8 HOURS IVPB 04/23/20 14:00 04/28/20 13:59 04/26/20 05:27 Quetiapine Fumarate (SEROqueL) 75 mg BEDTIME ORAL 04/23/20 21:00 06/07/20 20:59 04/25/20 20:33 Sennosides (Senokot) 17.2 mg DAILY ORAL 04/24/20 09:00 05/24/20 08:59 Temazepam (Restoril) 15 mg HSPRN PRN ORAL Insomnia 04/23/20 06:00 04/30/20 05:59 Valproic Acid (Depakene) 500 mg DAILY ORAL 04/25/20 10:00 05/24/20 08:59 04/26/20 09:27 Valproic Acid (Depakene) 750 mg BEDTIME ORAL 04/25/20 21:00 05/23/20 20:59 04/25/20 20:30 Vancomycin HCl (Firvanq) 125 mg FOUR TIMES A DAY ORAL 04/23/20 13:30 04/30/20 13:29 04/26/20 09:26 Assessment/Plan Assessment/Plan IMPRESSION: 1. Atelectasis. 2. Fever and leukocytosis. 3. Previous CVA. 4. Hypertension. 5. Diabetes mellitus. DISCUSSION: Continue with broad spectrum antibiotics. Currently, I do not suspect an active pulmonary source, however, I will follow carefully as often x-ray may change after hydration. Currently saturating well on RA Srinivas Nye M.D. Srinivas Nye MD Apr 26, 2020 09:34
--- NOTE | 2020-04-26 10:28 | NUR ---
*-* INSURANCE *-* UPDATED CLINICALS HAVE BEEN FAXED TO: [facility] Tracking# [id number] F: [phone]
--- NOTE | 2020-04-26 10:58 | NUR ---
CASE MANAGEMENT:REVIEW SI;SEPSIS. UTI. CONRAD. 98.1 69 19 152/60 94% ON RA K+ 3.4 CA 7.4 IS;PEPCID PO BID ZOSYN IV Q8 VANCOMYCIN PO QID HEPARIN SUBQ Q12 LOPRESSOR PO Q12 ATROVENT HHN Q4 PRN DEPAKENE PO BID HYDRALAZINE PO Q6 PRN MED SURG STATUS DCP;[facility]
[2020-04-26] MEDS ORDERED: NovoLOG Insulin Flexpen SUBQ SCH (11:30)
[2020-04-26] MEDS ORDERED: NOVOLOG100 UNITS1 SUBQ (11:51)
[2020-04-26] MEDS ORDERED: LEVEMIR FL100 UNIT/1 SUBQ (11:51)
[2020-04-26] MEDS ORDERED: NORVASC5 MG ORAL (11:51)
--- NOTE | 2020-04-26 11:51 | Cardiology Progress Note ---
Assessment/Plan Status: stable Assessment/Plan Assessment/Plan Problem List: (1) History of stroke ICD Codes: Z86.73 - Personal history of transient ischemic attack (TIA), and cerebral infarction without residual deficits SNOMED: 803463296 (2) CAD (coronary artery disease) ICD Codes: I25.10 - Atherosclerotic heart disease of [place] coronary artery without angina pectoris SNOMED: 84178676 (3) UTI (urinary tract infection) ICD Codes: N39.0 - Urinary tract infection, site not specified SNOMED: 21681963 Qualifiers: Qualified Codes: N30.00 - Acute cystitis without hematuria (4) Sepsis ICD Codes: A41.9 - Sepsis, unspecified organism SNOMED: 38436827 Qualifiers: Qualified Codes: A41.9 - Sepsis, unspecified organism; R65.20 - Severe sepsis without septic shock; N17.9 - Acute kidney failure, unspecified (5) Acute metabolic encephalopathy ICD Codes: G93.41 - Metabolic encephalopathy SNOMED: 11984868, 666685532 Assessment/Plan: Patient is a 65-year-old male with past medical history of bedbound and a phasic secondary to CVA, CAD?, Who presents from skilled nursing for sepsis. -Serial EKG/Troponin -Echocardiogram with normal LV function and mild valvular disease -Stress test when stable -No indication for cardiac cath at this time -Hold heparin unless troponin rising with EKG changes -IV fluids, monitor renal function -Continue norvasc -Continue lipitor -Continue plavix ok to dc today Subjective Cardiovascular: Reports: no symptoms Respiratory: Reports: no symptoms Gastrointestinal/Abdominal: Reports: no symptoms Genitourinary: Reports: no symptoms Subjective No acute events, renal US negative, Creatinine improving, BP stable Objective Last 24 Hour Vital Signs Date Time Temp Pulse Resp B/P (MAP) Pulse Ox O2 Delivery O2 Flow Rate FiO2 04/26/20 08:00 98.1 61 17 135/62 (86) 97 04/26/20 04:00 97.9 60 19 152/60 (90) 95 04/26/20 00:00 98.1 66 19 139/57 (84) 97 04/25/20 21:00 Room Air 04/25/20 20:33 69 145/71 04/25/20 20:17 68 18 94 Room Air 21 04/25/20 20:00 99.5 69 19 145/71 (95) 98 04/25/20 16:00 98.2 64 18 136/62 (86) 95 04/25/20 12:00 97.0 59 18 124/43 (70) 97 General Appearance: no apparent distress, alert EENT: PERRL/EOMI, normal ENT inspection, TMs normal, pharynx normal Neck: non-tender, normal alignment, supple, normal inspection, no JVD Rhythm: NSR Cardiovascular: normal peripheral pulses, normal rate, regular rhythm Respiratory/Chest: chest wall non-tender, lungs clear, normal breath sounds Abdomen: normal bowel sounds, non tender, soft, no organomegaly, no mass Extremities: normal range of motion, non-tender, normal inspection, no calf tenderness 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, no motor/sensory deficits Intake and Output 04/25/20 04/26/20 19:00 07:00 Intake Total 1780 ml 1137.5 ml Output Total 800 ml 300 ml Balance 980 ml 837.5 ml Intake Oral 880 ml IV Total 900 ml 1137.5 ml Output Urine Total 800 ml 300 ml # Bowel Movements 3 Laboratory Tests Test 04/25/20 17:00 04/25/20 18:32 04/26/20 05:33 04/26/20 06:27 POC Whole Blood Glucose 70 MG/DL (74-106) L Pending 47 MG/DL (74-106) L 85 MG/DL (74-106) Test 04/26/20 07:55 White Blood Count 9.9 K/UL (4.8-10.8) Red Blood Count 3.57 M/UL (4.70-6.10) L Hemoglobin 10.5 G/DL (14.2-18.0) L Hematocrit 32.9 % (42.0-52.0) L Mean Corpuscular Volume 92 FL (80-99) Mean Corpuscular Hemoglobin 29.4 PG (27.0-31.0) Mean Corpuscular Hemoglobin Concent 31.8 G/DL (32.0-36.0) L Red Cell Distribution Width 13.4 % (11.6-14.8) Platelet Count 306 K/UL (150-450) Mean Platelet Volume 6.3 FL (6.5-10.1) L Neutrophils (%) (Auto) 75.2 % (45.0-75.0) H Lymphocytes (%) (Auto) 10.9 % (20.0-45.0) L Monocytes (%) (Auto) 11.1 % (1.0-10.0) H Eosinophils (%) (Auto) 1.1 % (0.0-3.0) Basophils (%) (Auto) 1.8 % (0.0-2.0) Sodium Level 144 MMOL/L (136-145) Potassium Level 3.4 MMOL/L (3.5-5.1) L Chloride Level 113 MMOL/L (98-107) H Carbon Dioxide Level 26 MMOL/L (21-32) Anion Gap 5 mmol/L (5-15) Blood Urea Nitrogen 14 mg/dL (7-18) Creatinine 1.2 MG/DL (0.55-1.30) Estimat Glomerular Filtration Rate > 60 mL/min (>60) Glucose Level 85 MG/DL (74-106) Calcium Level 7.4 MG/DL (8.5-10.1) L Microbiology Date/Time Source Procedure Growth Status 04/24/20 18:05 Stool Clostridium difficile Toxin Assay - Final Complete FilsoCarlos wetzel MD Apr 26, 2020 11:51
--- NOTE | 2020-04-26 11:52 | Discharge Summary ---
Discharge Summary Hospital Course Date of Admission Apr 23, 2020 at 04:44 Date of Discharge Admitting Diagnosis sepsis, uti HPI Zak Scott is a 65 year old male who was admitted on Apr 23, 2020 at 04:44 for Sepsis, Urinary Tract Infection Hospital Course Patient is a 65-year-old male with past medical history of bedbound and a phasic secondary to CVA, CAD?, Who presents from snf for sepsis. Pt found to have UTI. Pt w/loose stool concerning for c diff however tested and was negative. D/w ID, given low sensitivity of stool test, will cont PO vanc on d/c for 7 more days as c diff was not a PCR test. Pt w/leukocytosis improved on IV zosyn, will cont for 5 more days on d/c. Cr 2.3 on admission, unknown b/l, improved w/IVF, Nephro Dr Ritchie following. Renal ultrasound was obtained w/no hydronephrosis or abscess noted. Pt also w/episode of hypoglycemia, detemir 10 U qhs changed to 5 U qhs. Pt labs improved and in stable condition to d/c back to SNF to complete abx course. D/c diagnosis: #Sepsis secondary to UTI #CONRAD versus CKD #Questionable CAD given medication list #History of CVA #HTN #DMT2 #Hypoglycemia D/c planning >30 mins. Discharge Medications New Medications: Dgfnznsknilt-Lxcz-Ujizfotb,Iso (Zosyn 3.375 Gm Pre Mix-Bag) 3.375 Gm/50 Ml Froz.piggy 3.375 GM IVPB EVERY 8 HOURS for 5 Days, #5 BAG Vancomycin Hcl (Vancocin Hcl) 125 Mg Capsule 125 MG PO QID for 7 Days, #28 CAP Amlodipine Besylate (Norvasc) 5 Mg Tablet 10 MG ORAL DAILY for 90 Days, #180 TAB 3 Refills Insulin Aspart (Novolog Flexpen) 100 Unit/1 Ml Insuln.pen 0 UNITS SUBQ BEFORE MEALS AND HS for 90 Days, #90 EA 3 Refills Insulin Detemir (Levemir Flexpen) 100 Unit/1 Ml Insuln.pen 5 UNITS SUBQ BEDTIME for 90 Days, #90 EA 3 Refills Continued Medications: Acetaminophen* (Tylenol Extra Strength*) 500 Mg Tablet 325 MG ORAL Q6H PRN for Mild Pain/Temp > 100.5, TAB 0 Refills Atorvastatin Calcium* (Atorvastatin Calcium*) 40 Mg Tablet 40 MG ORAL BEDTIME for hyperlipidemia, TAB Clopidogrel Bisulfate* (Plavix*) 75 Mg Tablet 75 MG ORAL DAILY for blood thinner, TAB Divalproex Sodium* (Depakote Er*) 500 Mg Tab.er.24h 750 MG ORAL EVERY 12 HOURS for sz, TAB Escitalopram Oxalate* (Lexapro*) 10 Mg Tablet 15 MG ORAL DAILY for depression, TAB Famotidine* (Pepcid 20mg tablet*) 20 Mg Tablet 20 MG ORAL DAILY for dm, #30 TAB 0 Refills Ipratropium [place] 0.5MG/2.5ML (Ipratropium [place] 0.5MG/2.5ML) 0.2 Mg/1 Ml Solution 0.5 MG HHN Q6H PRN for Shortness of Breath, #28 EA Metoprolol/Hydrochlorothiazide (Lopressor Hct 50-25 Tablet) 1 Each Tablet 1 TAB ORAL DAILY for HTN, TAB Quetiapine Fumarate* (Seroquel*) 100 Mg Tablet 75 MG ORAL DAILY for depression, TAB Sennosides-Docusate Sodium* (Sennosides-Docusate Sodium*) 1 Each Tablet 1 TAB ORAL DAILY for constipation, TAB Discontinued Medications: Amlodipine Besylate (Norvasc) 5 Mg Tablet 5 MG ORAL DAILY for cardiac, TAB Insulin Glargine (Lantus) 100 Unit/1 Ml Insuln.pen 0 SUBQ BEDTIME for dm, #1 EA 0 Refills Insulin Lispro (Insulin Lispro) 100 Unit/1 Ml Vial 100 UNIT SQ for dm, VIAL Lisinopril (Lisinopril*) 20 Mg Tablet 20 MG ORAL DAILY for HTn, TAB Discharge Condition Upon Discharge: stable Discharge Vital Signs Last Vital Signs Date Time Temp Pulse Resp B/P (MAP) Pulse Ox O2 Delivery O2 Flow Rate FiO2 04/26/20 08:00 98.1 61 17 135/62 (86) 97 04/25/20 21:00 Room Air 04/25/20 20:17 21 Discharge Disposition Patient was discharged to [facility] Magan Smith M.D. Apr 26, 2020 11:52
[2020-04-26 12:00] VITALS: BP 150/67
[2020-04-26] MEDS ORDERED: VANCOCIN HCL125 MG PO (12:01)
--- NOTE | 2020-04-26 13:21 | NUR ---
*-*DISCHARGE PLANNED*-* PATIENT HAS BEEN ACCEPTED AND WILL BE DISCHARGED BACK TO: [facility] P: [phone] FOR NURSE TO NURSE REPORT. ROOM# 105.[facility] TRANSPORTATION SET FOR 3:0PM S/W MICHELE [id number] PLACED A CALL TO [facility], WHO IS IN AGREEMENT WITH DISCHARGE PLAN.
--- NOTE | 2020-04-26 15:41 | NUR ---
HEAD OF DIGITAL NOTE NATHALIA ARTEAGA INFORMED CM THAT [facility], PER TRAN, INFORMED RN THEY ARE UNABLE TO ADMINISTER IV MEDICATION UPON RETURN TO SNF. THIS PLACED CALL TO [facility] @ [phone]. S/W TRAN WHO INFORMED CM THAT SNF IS UNABLE TO ACCOMMODATE IV ABX DUE TO STAFFING ISSUES. PER TRAN, SHE IS CURRENTLY THE ONLY RN IN HOUSE AND ARE IN THE PROCESS OF HIRING ON NEW STAFF. PER DUE, REQUESTS IF ABX CAN BE CHANGED TO PO. NEERAJ BENITEZ AND DAVID HERRON.
--- NOTE | 2020-04-26 15:44 | NUR ---
NURSE NOTES: Gave report to Saundra nursing supervisor shuttle preparation. Channel Program Manager stated that the facility does not have adequate staff to administer the required IV antibiotics patient would need post-discharge. Channel Program Manager would like route to be changed in order to accept patient. RN notified case management. RN will notify infectious disease MD and primary MD about alternative administration route options. Charge nurse aware.
[2020-04-26] MEDS ORDERED: AUGMENTIN 875-1 EAC1 ORAL (16:01)
--- NOTE | 2020-04-26 16:02 | Infectious Diseases Prog Note ---
Assessment/Plan Assessment/Plan ASSESSMENT/PLAN: 1. sepsis, leukocytosis, fevers, ? c.diff. - zosyn and po vancomycin - continue po vancomycin x 1 week - change zosyn to augmentin x 5 days - d/w Dr. Smith - cleared for discharge - clinically improved, leukocytosis resolved 2. Diabetes. 3. Hypertension. 4. CVA. 5. Blood sugar and blood pressure treatment per primary care team. 6. Acute kidney injury. 7. Possible chronic renal failure. 8. The patient is also anemic. 9. No known allergies. 10. Social history is negative. 11. Family history is noncontributory. 12. MAR was noted. 13. Case discussed with RN. 14. Skin care protocol. 15. Continue treatment per primary consultants. Subjective Constitutional: Denies: fever HEENT: Denies: congestion Respiratory: Denies: shortness of breath Cardiovascular: Denies: chest pain Gastrointestinal/Abdominal: Denies: nausea Genitourinary: Denies: dysuria Psychiatric: Denies: depression Skin: Denies: rash Hematologic: Denies: bleeding Musculoskeletal: Denies: pain Allergies: Coded Allergies: No Known Allergies (Unverified , 04/23/20) Objective Last 24 Hour Vital Signs Date Time Temp Pulse Resp B/P (MAP) Pulse Ox O2 Delivery O2 Flow Rate FiO2 04/26/20 12:00 97.9 70 18 150/67 (94) 99 04/26/20 09:00 Room Air 04/26/20 08:00 98.1 61 17 135/62 (86) 97 04/26/20 04:00 97.9 60 19 152/60 (90) 95 04/26/20 00:00 98.1 66 19 139/57 (84) 97 04/25/20 21:00 Room Air 04/25/20 20:33 69 145/71 04/25/20 20:17 68 18 94 Room Air 21 04/25/20 20:00 99.5 69 19 145/71 (95) 98 04/25/20 16:00 98.2 64 18 136/62 (86) 95 Height (Feet): 5 Height (Inches): 8.00 Weight (Pounds): 138 General Appearance: no acute distress HEENT: normocephalic, atraumatic, anicteric, mucous membranes moist Respiratory/Chest: lungs clear, normal breath sounds, no respiratory distress, no accessory muscle use Cardiovascular: normal rate, regular rhythm, no gallop/murmur Abdomen: normal bowel sounds, soft, non tender, no organomegaly, non distended Genitourinary: other - + epperson Extremities: no cyanosis Skin: no rash 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 There is persistent right basilar atelectasis. The remainder of the lungs and pleural spaces are clear. The heart size is normal. Impression: Unchanged, over one day, findings as above. Microbiology Date/Time Source Procedure Growth Status 04/23/20 02:00 Blood Blood Culture - Preliminary NO GROWTH AFTER 72 HOURS Resulted 04/23/20 02:15 Nasal Nares MRSA Culture - Final NO METHICILLIN RESISTANT STAPH AUREUS... Complete 04/24/20 18:05 Stool Clostridium difficile Toxin Assay - Final Complete 04/23/20 02:15 Rectum VRE Culture - Final Enterococcus Faecalis - Vre Complete 04/23/20 02:15 Rectum - Final NO CARBAPENEM-RESISTANT ENTEROBACTERI... Complete Microbiology Date/Time Source Procedure Growth Status 04/24/20 18:05 Stool Clostridium difficile Toxin Assay - Final Complete Laboratory Tests Test 04/25/20 17:00 04/25/20 18:32 04/26/20 05:33 04/26/20 06:27 POC Whole Blood Glucose 70 MG/DL (74-106) L Pending 47 MG/DL (74-106) L 85 MG/DL (74-106) Test 04/26/20 07:55 White Blood Count 9.9 K/UL (4.8-10.8) Red Blood Count 3.57 M/UL (4.70-6.10) L Hemoglobin 10.5 G/DL (14.2-18.0) L Hematocrit 32.9 % (42.0-52.0) L Mean Corpuscular Volume 92 FL (80-99) Mean Corpuscular Hemoglobin 29.4 PG (27.0-31.0) Mean Corpuscular Hemoglobin Concent 31.8 G/DL (32.0-36.0) L Red Cell Distribution Width 13.4 % (11.6-14.8) Platelet Count 306 K/UL (150-450) Mean Platelet Volume 6.3 FL (6.5-10.1) L Neutrophils (%) (Auto) 75.2 % (45.0-75.0) H Lymphocytes (%) (Auto) 10.9 % (20.0-45.0) L Monocytes (%) (Auto) 11.1 % (1.0-10.0) H Eosinophils (%) (Auto) 1.1 % (0.0-3.0) Basophils (%) (Auto) 1.8 % (0.0-2.0) Sodium Level 144 MMOL/L (136-145) Potassium Level 3.4 MMOL/L (3.5-5.1) L Chloride Level 113 MMOL/L (98-107) H Carbon Dioxide Level 26 MMOL/L (21-32) Anion Gap 5 mmol/L (5-15) Blood Urea Nitrogen 14 mg/dL (7-18) Creatinine 1.2 MG/DL (0.55-1.30) Estimat Glomerular Filtration Rate > 60 mL/min (>60) Glucose Level 85 MG/DL (74-106) Calcium Level 7.4 MG/DL (8.5-10.1) L Current Medications Medications (Trade) Dose Ordered Sig/Raghu Route PRN Reason Start Time Stop Time Status Last Admin Dose Admin Acetaminophen (Tylenol) 650 mg Q4H PRN ORAL Temp >100.5 04/23/20 06:50 05/23/20 06:49 04/23/20 07:00 Amlodipine Besylate (Norvasc) 10 mg DAILY ORAL 04/26/20 09:00 05/24/20 08:59 Atorvastatin Calcium (Lipitor) 40 mg BEDTIME ORAL 04/23/20 21:00 07/22/20 20:59 04/25/20 20:33 Clopidogrel Bisulfate (Plavix) 75 mg DAILY ORAL 04/26/20 09:00 05/26/20 08:59 Dextrose (Dextrose 50%) 25 ml Q30M PRN IV Hypoglycemia 04/23/20 06:00 07/22/20 05:59 Dextrose (Dextrose 50%) 50 ml Q30M PRN IV Hypoglycemia 04/23/20 06:00 07/22/20 05:59 Diphenhydramine HCl (Benadryl) 25 mg Q6H PRN ORAL Itching/Pruritis 04/23/20 06:00 05/23/20 05:59 Escitalopram Oxalate (Lexapro) 15 mg DAILY ORAL 04/24/20 09:00 05/24/20 08:59 04/25/20 09:21 Famotidine (Pepcid) 20 mg BID ORAL 04/23/20 09:00 07/22/20 08:59 04/25/20 18:12 Folic Acid (Folate) 1 mg DAILY ORAL 04/24/20 09:00 05/24/20 08:59 04/25/20 09:21 Heparin Sodium (Porcine) (Heparin 5000 units/ml) 5,000 units EVERY 12 HOURS SUBQ 04/23/20 09:00 06/07/20 08:59 04/26/20 09:29 Hydralazine HCl (Apresoline) 10 mg Q6H PRN ORAL For High Blood Pressure 04/26/20 09:00 07/25/20 08:59 Insulin Aspart (NovoLOG) BEFORE MEALS AND HS SUBQ 04/26/20 11:30 07/25/20 11:29 04/26/20 12:46 Insulin Detemir (Levemir) 5 units BEDTIME SUBQ 04/26/20 21:00 07/22/20 20:59 Ipratropium [place] (Atrovent) 500 mcg Q4H PRN HHN Shortness of Breath 04/23/20 15:45 04/28/20 15:44 Lorazepam (Ativan) 1 mg THREE TIMES A DAY PRN ORAL Agitation 04/23/20 15:45 04/30/20 15:44 04/23/20 20:18 Magnesium Hydroxide (Mom) 30 ml DAILYPRN PRN ORAL Constipation 04/23/20 15:45 05/23/20 15:44 Metoprolol Tartrate (Lopressor) 50 mg Q12HR ORAL 04/23/20 21:00 07/22/20 20:59 04/25/20 20:33 Morphine Sulfate (Morphine Sulfate) 1 mg Q3H PRN IVP For Pain 04/23/20 06:00 04/30/20 05:59 Ondansetron HCl (Zofran) 4 mg Q6H PRN IVP Nausea & Vomiting 04/23/20 06:00 05/23/20 05:59 Piperacillin Sod/ Tazobactam Sod 3.375 gm/Sodium Chloride 110 ml @ 27.5 mls/hr EVERY 8 HOURS IVPB 04/23/20 14:00 04/28/20 13:59 04/26/20 15:13 Quetiapine Fumarate (SEROqueL) 75 mg BEDTIME ORAL 04/23/20 21:00 06/07/20 20:59 04/25/20 20:33 Sennosides (Senokot) 17.2 mg DAILY ORAL 04/24/20 09:00 05/24/20 08:59 Temazepam (Restoril) 15 mg HSPRN PRN ORAL Insomnia 04/23/20 06:00 04/30/20 05:59 Valproic Acid (Depakene) 500 mg DAILY ORAL 04/25/20 10:00 05/24/20 08:59 04/25/20 10:09 Valproic Acid (Depakene) 750 mg BEDTIME ORAL 04/25/20 21:00 05/23/20 20:59 04/25/20 20:30 Vancomycin HCl (Firvanq) 125 mg FOUR TIMES A DAY ORAL 04/23/20 13:30 04/30/20 13:29 04/26/20 12:45 Malina Thompson MD Apr 26, 2020 16:02
--- NOTE | 2020-04-26 16:19 | NUR ---
NURSE NOTES: Antibiotics were changed to oral per MD. Notified Saundra, nursing shop supervisor at [facility]. Charge nurse aware.
[2020-04-26 16:27] VITALS: BP 163/72
--- NOTE | 2020-04-26 16:44 | NUR ---
NURSE NOTES: Discharged to [facility] via [facility] [address]. Gave report to bell maker Nayeli Field and Renato Lowe. Discharge protocol followed.
[2020-04-26] MEDS ORDERED: Augmentin 875mg Tab ORAL SCH (21:00)
[2020-04-26] MEDS ORDERED: Levemir Flexpen SUBQ SCH (21:00)
--- NOTE | 2020-04-27 13:05 | NUR ---
*-* INSURANCE *-* UPDATED CLINICALS HAVE BEEN FAXED TO: [facility] Tracking# [id number] F: [phone]
--- NOTE | 2020-04-28 11:23 | NUR ---
*-* INSURANCE *-* DISCHARGE SUMMARY HAS BEEN FAXWED: [facility]# [id number] F: [phone]
== END 2020-04-26 16:50 | DRG 720 ==
LOC: EDBD 01:55 → EMR 02:07 → 4E 04:44 → EDBEDREQ 05:32
DX: A41.9 Sepsis, unspecified organism (principal); N39.0 Urinary tract infection, site not specified; G93.41 Metabolic encephalopathy; J98.11 Atelectasis; E11.649 Type 2 diabetes mellitus with hypoglycemia without coma; N17.9 Acute kidney failure, unspecified; Z79.4 Long term (current) use of insulin; Z79.02 Long term (current) use of antithrombotics/antiplatelets; Z86.73 Personal history of transient ischemic attack (TIA), and cerebral infarction without residual deficits
CPT/HCPCS: 36415; 51702; 71045; 76770; 80048; 80053; 81003; 82550; 82553; 82962; 83036; 83605; 83735; 84100; 84484; 85007; 85025; 87040; 87081; 87324; 93005; 93306; 94664; 96361; 96365; 96375; 99285; J1815; J2405; J7030; J8499; S5561; U0002